=== PATIENT | male | born 1975 | race Caucasian/White ===

== ENCOUNTER 2018-04-26 05:35 | Inpatient (IN) | payer OTHER ==
--- NOTE | 2018-04-26 06:40 | ED ---
SOB HPI - General Chief Complaint: Shortness of Breath Stated Complaint: YURI Source: family, EMS Mode of arrival: EMS Limitations: no limitations - History of Present Illness Initial Comments: This patient's 43-year-old man with history of severe cardiomyopathy, hypertension, CHF, and asthma. He is transferred here from [facility]. He had gone there tonight for worsening shortness of breath. Patient states that his symptoms that started nearly 2 weeks ago with some mild shortness of breath. He also has had a cough with some white sputum. He states that things became much more severe tonight when he was trying to lie down to sleep. The patient was so short of breath that he could not put up in the hospital and longer. He also states that he has noted a little bit of swelling at both ankles. MD Complaint: shortness of breath, cough -: hour(s) Consistency: constant Improves With: oxygen Worsens With: lying flat Known History Of: asthma, congestive heart failure Associated Symptoms: cough, sputum production (White) Treatments Prior to Arrival: oxygen, NIPPV, nitroglycerin - Related Data Home Medications Medication Instructions Recorded Confirmed Aspirin EC [Ecotrin Low Dose] 81 mg PO DAILY 05/15/14 05/18/14 Atorvastatin [Lipitor] 40 mg PO DAILY 05/15/14 05/18/14 Carvedilol [Coreg*] 12.5 mg PO BID 05/15/14 05/18/14 Spironolactone [Aldactone] 25 mg PO DAILY 05/15/14 05/18/14 Lisinopril [Zestril] 20 mg PO DAILY 05/18/14 05/18/14 Previous Rx's Medication Instructions Recorded Furosemide [Lasix] 40 mg PO DAILY #90 tab 05/18/14 Allergies Allergy/AdvReac Type Severity Reaction Status Date / Time No Known Allergies Allergy Verified 05/15/14 13:59 Review of Systems ROS Statement: Those systems with pertinent positive or pertinent negative responses have been documented in the HPI. ROS Other: All systems not noted in ROS Statement are negative. Constitutional: Denies: fever, chills, weakness Respiratory: Reports: cough, dyspnea. Denies: wheezes, hemoptysis Cardiovascular: Reports: dyspnea on exertion, orthopnea, edema. Denies: chest pain, palpitations, syncope Gastrointestinal: Denies: abdominal pain, nausea, vomiting Genitourinary: Denies: dysuria, hematuria Musculoskeletal: Denies: back pain Skin: Denies: rash Neurological: Denies: headache, weakness, numbness Past Medical History Past Medical History: Asthma, Heart Failure, Hyperlipidemia, Hypertension Additional Past Medical History / Comment(s): CHILDHOOD ASTHMA, IS GOING FOR TESTING FOR SLEEP APNEA, cardiomegaly, CHF History of Any Multi-Drug Resistant Organisms: None Reported Past Surgical History: Orthopedic Surgery, Tonsillectomy Additional Past Surgical History / Comment(s): STATES HAS PINS IN [place] LEGS Past Anesthesia/Blood Transfusion Reactions: No Reported Reaction Past Psychological History: Anxiety, Depression Smoking Status: Former smoker Past Alcohol Use History: Rare Past Drug Use History: None Reported General Exam Limitations: no limitations General appearance: alert, in distress, obese Head exam: Present: atraumatic, normocephalic Eye exam: Present: normal appearance. Absent: scleral icterus, conjunctival injection ENT exam: Present: mucous membranes dry Respiratory exam: Present: respiratory distress, wheezes, rales (Bilateral bases ). Absent: rhonchi, stridor, decreased breath sounds, prolonged expiratory Cardiovascular Exam: Present: normal rhythm, tachycardia, normal heart sounds. Absent: systolic murmur, diastolic murmur, rubs, gallop GI/Abdominal exam: Present: soft. Absent: distended, tenderness, guarding, rebound, mass Extremities exam: Present: normal inspection, normal capillary refill. Absent: pedal edema, calf tenderness Back exam: Present: normal inspection Neurological exam: Present: alert Skin exam: Present: warm, intact, normal color, diaphoretic. Absent: rash Course Vital Signs 04/26/18 04/26/18 04/26/18 05:42 05:50 05:51 Temperature 97.7 F Pulse Rate 105 H Respiratory 28 H Rate Blood Pressure 167/121 167/120 177/128 O2 Sat by Pulse 95 Oximetry 04/26/18 04/26/18 04/26/18 05:57 06:14 06:15 Temperature Pulse Rate 105 H Respiratory 26 H 29 H Rate Blood Pressure 175/123 191/132 O2 Sat by Pulse 97 Oximetry Medical Decision Making - EKG Data EKG shows normal: axis (Right axis deviation), intervals (QRS duration 176 ms, prolonged consistent with left bundle-branch block), QRS complexes (Bundle- branch block) Rate: tachycardia (Rate approximately 105 bpm) Interpretation: other (Atrial fibrillation) Disposition Clinical Impression: Congestive heart failure Disposition: ADMITTED IP TO THIS HOSP Condition: Poor Referrals: None,Stated [Primary Care Provider] - 1-2 days
[2018-04-26] MEDS ORDERED: NITROGLYCERIN-D5W PMX 50 MG in DEXTROSE/WATER 1 250ML.BAG IV ONE (06:54)
[2018-04-26] MEDS: NITROGLYCERIN-D5W PMX 50 MG in DEXTROSE/WATER 1 250ML.BAG IV STA ×2 (06:59→10:43)
[2018-04-26] MEDS: SODIUM CHLORIDE 0.9% 1,000 ML IV SCH (07:04)
[2018-04-26] MEDS ORDERED: NALOXONE 0.4 MG/ML 1 ML VIAL IV PRN (08:09)
[2018-04-26] MEDS ORDERED: HYDROcodone/APAP 5-325MG 1 EACH TAB PO PRN (08:09)
[2018-04-26] MEDS ORDERED: LABETALOL 5 MG/ML VIAL MDV IVP STA ×2 (08:09→09:41)
[2018-04-26] MEDS ORDERED: MORPHINE SULFATE 2 MG/ML SYRINGE IV PRN (08:09)
[2018-04-26] MEDS ORDERED: ALPRAZolam 0.25 MG TAB PO PRN (08:09)
[2018-04-26] MEDS ORDERED: DOCUSATE 100 MG CAP PO PRN (08:09)
[2018-04-26] MEDS: FUROSEMIDE 10 MG/ML 4 ML VIAL IV SCH ×2 (08:12→22:22)
[2018-04-26] MEDS: CARVEDILOL 12.5 MG TAB PO SCH ×4 (08:12→18:46)
[2018-04-26] MEDS: ASPIRIN 81 MG PO SCH (08:12)
[2018-04-26] MEDS: ATORVASTATIN 40 MG TAB PO SCH (08:12)
[2018-04-26] MEDS: ENOXAPARIN 40 MG/0.4 ML SYRINGE SQ SCH (08:14)
[2018-04-26 08:38] LABS: Basophils # (A) 0.1 k/uL (0-0.2); Basophils % (A) 0 %; Eosinophils # (A) 0.2 k/uL (0-0.7); Eosinophils % (A) 2 %; HCT 45.6 % (39.0-53.0); HGB 15.1 gm/dL (13.0-17.5); Lymphocytes # (A) 1.9 k/uL (1.0-4.8); Lymphocytes % (A) 13 %; MCH 28.3 pg (25.0-35.0); MCHC 33.2 g/dL (31.0-37.0); MCV 85.3 fL (80.0-100.0); Mean Platelet Volume 7.2; Monocytes # (A) 0.7 k/uL (0-1.0); Monocytes % (A) 5 %; Neutrophils # (A) 11.5 k/uL (1.3-7.7); Neutrophils % (A) 79 %; Platelet Count 308 k/uL (150-450); RBC 5.35 m/uL (4.30-5.90); RDW 15.9 % (11.5-15.5); WBC 14.6 k/uL (3.8-10.6)
[2018-04-26 08:55] LABS: Appearance,Urine Clear (Clear); Bilirubin,Urine Negative (Negative); Blood,Urine Negative (Negative); Color,Urine Colorless; Glucose,Urine (UA) Negative (Negative); Ketones,Urine Negative (Negative); Leukocyte Esterase,Urine Negative (Negative); Nitrite,Urine Negative (Negative); Protein,Urine Negative (Negative); Specific Gravity,Urine 1.004 (1.001-1.035); Urobilinogen,Urine <2.0 mg/dL (<2.0)
[2018-04-26 08:58] LABS: INR 1.2 (<1.2)
[2018-04-26 08:59] LABS: Partial Thromboplastin Time 24.2 sec (22.0-30.0); Prothrombin Time 11.7 sec (9.0-12.0)
[2018-04-26] MEDS ORDERED: LISINOPRIL 20 MG TAB PO SCH (09:00)
[2018-04-26 09:03] LABS: ALT 40 U/L (21-72); AST 27 U/L (17-59); Albumin 3.7 g/dL (3.5-5.0); Alkaline Phosphatase 52 U/L (38-126); Anion Gap 8 mmol/L; Blood Urea Nitrogen 19 mg/dL (9-20); Calcium 8.6 mg/dL (8.4-10.2); Carbon Dioxide 26 mmol/L (22-30); Chloride 108 mmol/L (98-107); Glucose 95 mg/dL (74-99); Magnesium 2.1 mg/dL (1.6-2.3); Potassium 4.1 mmol/L (3.5-5.1); Sodium 142 mmol/L (137-145); Total Bilirubin 1.2 mg/dL (0.2-1.3); Total Protein 6.3 g/dL (6.3-8.2)
--- NOTE | 2018-04-26 10:01 | P.HPIM ---
History of Present Illness H&P Date: 04/26/18 Chief Complaint: shortness of breath Patient is a 43-year-old male past medical history of congestive heart failure with ejection fraction 10-15%, dyslipidemia, hypertension, sleep apnea, and asthma who initially presented to [facility]. They were concerned that he needed ICU admission he was subsequently transferred here. Strict he underwent an extensive evaluation. His chest x-ray showed fluid overload and cardiomegaly. Initial laboratory analysis showed slightly elevated white blood cell count 11.2, hemoglobin 14.9, hematocrit 45.2, and platelets 297. His basic metabolic profile showed a sodium of 143, potassium 4.2, chloride 106, bicarb 23, BUN and 18, creatinine 1.5, and glucose 119. His troponin was less than 0.03 and his BNP was elevated at 8116. He was also extremely hypertensive and was started on a nitro drip. He was started on BiPAP therapy to help with his breathing. Patient seen and examined at bedside in the emergency department. He states that he was at work last night and had an acute episode. He describes chest tightness that started in his stomach radiated to his chest and then into his jaw. This was associated with a feeling of throat tightening, shortness of breath, diaphoresis, nausea, lightheadedness, and left arm tingling. He believes that episode lasted 5 minutes or less. He then decided to come to the ER. He states that for the last 2 weeks he has been consistently struggling. He has been short of breath which is worse with exertion and lying flat but better with rest. This has been associated with a cough productive of white sputum. The other day he coughed so hard he had some bright red blood in his sputum. He has also been intermittently diaphoretic. He noticed a decreased appetite and increasing lower extremity edema. He initially thought he was could have pneumonia as he was having hot and cold sweats over the last few weeks. He also has felt fatigued and weak all over. He has not seen a physician for this prior. He does not have a PCP because his family physician retired. His corporate compliance manager is Dr. Zuleta he canceled the last 2 appointments due to being sick. He also struggling due to having no insurance. Review of Systems Pertinent positives and negatives as discussed in HPI, a complete review of systems was performed and all other systems are negative. Past Medical History Past Medical History: Asthma, Heart Failure, Hyperlipidemia, Hypertension Additional Past Medical History / Comment(s): CHILDHOOD ASTHMA, Sleep apnea, CHF , Morbid obesity History of Any Multi-Drug Resistant Organisms: None Reported Past Surgical History: Heart Catheterization, Orthopedic Surgery, Tonsillectomy Additional Past Surgical History / Comment(s): B/l Hip pinning as a child, right sided pins removed 2014 Past Anesthesia/Blood Transfusion Reactions: No Reported Reaction Past Psychological History: Anxiety, Depression Smoking Status: Former smoker Past Alcohol Use History: Rare Past Drug Use History: None Reported Additional History: Lives with mother and bother, works in a [id number], No insurnance - Past Family History Father Family Medical History: CVA/TIA, Myocardial Infarction ([place]) Additional Family Medical History / Comment(s): Father had MIs and CVAs and at the age of 47yrs. Mother Family Medical History: Diabetes Mellitus Additional Family Medical History / Comment(s): Mother has peripheral neuropathy. She is obese. Medications and Allergies Home Medications Medication Instructions Recorded Confirmed Type Aspirin EC [Ecotrin Low Dose] 81 mg PO DAILY 05/15/14 04/26/18 History Atorvastatin [Lipitor] 40 mg PO DAILY 05/15/14 04/26/18 History Carvedilol [Coreg*] 12.5 mg PO BID 05/15/14 04/26/18 History Spironolactone [Aldactone] 25 mg PO DAILY 05/15/14 04/26/18 History Furosemide [Lasix] 40 mg PO DAILY #90 tab 05/18/14 04/26/18 Rx Lisinopril [Zestril] 20 mg PO DAILY 05/18/14 04/26/18 History Allergies Allergy/AdvReac Type Severity Reaction Status Date / Time No Known Allergies Allergy Verified 04/26/18 07:41 Physical Exam Osteopathic Statement: *. No significant issues noted on an osteopathic structural exam other than those noted in the History and Physical/Consult. Vitals: Vital Signs Temp Pulse Resp BP Pulse Ox 04/26/18 08:00 94 18 185/108 97 04/26/18 07:34 97.6 F 93 18 174/106 98 04/26/18 06:15 29 H 04/26/18 06:14 105 H 26 H 191/132 97 04/26/18 05:57 175/123 04/26/18 05:51 177/128 04/26/18 05:50 167/120 04/26/18 05:42 97.7 F 105 H 28 H 167/121 95 Intake and Output 04/25/18 04/26/18 04/26/18 22:59 06:59 14:59 Intake Total 38.2 Output Total 500 Balance -461.8 Intake: Intake, IV Titration 38.2 Amount Nitroglycerin-D5w Pmx 50 38.2 mg In Dextrose/Water 1 250ml.bag @ 100 MCG/MIN 30 mls/hr IV .Q8H20M STA Rx#:[id number] Output: Urine 500 Other: Weight 163.293 kg General: ill appearing, mild distress, appears at stated age, morbidly obese Derm: no unusual rashes/lesions no unusual ecchymoses, warm, dry Head: atraumatic, normocephalic, symmetric Eyes: EOMI, no lid lag, anicteric sclera, pupils equal round reactive to light ENT: Nose and ears atraumatic, no thrush, no pharyngeal erythema Neck: No thyromegaly, no cervical lymphadenopathy, trachea midline, supple Mouth: no lip lesion, mucus membranes dryt Cardiovascular: S1S2 tachy, no murmur, positive posterior tibial pulse bilateral , 3+ edema, capillary refill less than 2 seconds Lungs: Crackles b/l bases, no rhonchi, no rales , no accessory muscle use Abdominal: soft, nontender to palpation, no guarding, no appreciable organomegaly, normal bowel sounds Ext: no gross muscle atrophy, muscle strength 5 out of 5 in all 4 extremities grossly, no contractures, Neuro: CN II-XI grossly intact, light touch intact all 4 extremities, finger to nose within normal limits, Psych: Alert, oriented, appropriate affect Results CBC & Chem 7: 04/26/18 05:38 04/26/18 08:30 Comments: EKG is reviewed by myself revealed sinus tachycardia nonspecific ST-T wave changes Chest x-ray: report reviewed, image reviewed (Appears to have cephalization and increased interstitial markings) Thrombosis Risk Factor Assmnt - DVT/VTE Prophylaxis DVT/VTE Prophylaxis: Pharmacologic Prophylaxis ordered - Choose All That Apply Each Factor Represents 1 point: Age 41-60 years, Heart failure (<1month), Obesity (BMI >25) Thrombosis Risk Factor Assessment Total Risk Factor Score: 3 Thrombosis Risk Factor Assessment Level: Moderate Risk Assessment and Plan Assessment: Acute exacerbation of systolic congestive heart failure, last ejection fraction 10-15% via cath in 2013 -Lasix twice a day, strict I's and O's, daily weight -Continue with lisinopril, Coreg -Aldactone -Telemetry monitoring -Cardiology consult -Check echocardiogram -BiPAP therapy to help with fluid mobilization as needed -ICU consult Hypertensive urgency -Continue with nitro drip -Small response IV labetalol will repeat 1 -Continue his blood pressure monitoring -Administration of morning meds Chest pain, possible acute coronary syndrome -Aspirin -Lipitor -Serial cardiac enzymes -Telemetry Dyslipidemia -Check lipid profile -Continue with Lipitor Obstructive sleep apnea -Does not have CPAP at home secondary to insurance and will not order at this point in time Morbid obesity -Recommend structured outpatient weight loss Leukocytosis -Urinalysis negative, chest x-ray without signs of pneumonia -Repeat chest x-ray in a.m. -Follow fever profile -Likely stress-induced The patient is admitted with an anticipated greater than 2 midnight stay for evaluation of congestive heart failure, hypertensive urgency, and chest pain. Surrogate decision-maker: Mother who will need to call ex- for full decision -making CODE STATUS: Full by default, patient considering options DVT prophylaxis: Lovenox Discussed with: ED physician, patient, ED nursing, ICU nursing Anticipated discharge date: 3-[address]: Home A total of 75 minutes was spent on the care of this complex patient more than 50 % of the time was spent in counseling and care coordination.
--- NOTE | 2018-04-26 10:11 | P.CRDCN ---
History of Present Illness Consult date: 04/26/18 Requesting physician: Selina Huang Consult reason: shortness of breath Chief complaint: Shortness of breath History of present illness: This is a 43-year-old gentleman who follows with Dr. Zuleta in the office. He has a known history of nonischemic cardiomyopathy, morbid obesity, obstructive sleep apnea, patient has not been able to use his CPAP because he lost his insurance, hypertension, hyperlipidemia, family history of premature coronary artery disease, patient did undergo cardiac catheterization in 2013 which revealed normal coronary arteries, ejection fraction by most recent echo performed in the office in June 2017 was 35%, mild TR, mild MR. Patient was seen and evaluated in the emergency room, he was transferred here from [facility], patient presented to [facility] with symptoms of severe difficulty in breathing which according to the patient has been going on for the past couple of weeks, symptoms much worse with minimal exertion, he states that he feels his lungs are tight and it's difficult to breathe. and also with lying flat. The patient, he's also noted some chills at home and states he's been coughing up white sputum. Laboratory data [facility], white blood cell count 11.2, hemoglobin 14.9, hematocrit 45.2. Platelet count 297. Sodium 143, potassium 4.2, magnesium 1.8, BUN 18, creatinine 1.2. Troponin 0.03. BNP level 8116. Chest x-ray performed earlier [facility] revealed cardiomegaly with no active cardiopulmonary disease. She was initiated on IV Lasix prior to transfer here and was also given a dose of IV Lasix on arrival here. EKG performed at [facility] shows a sinus rhythm with left bundle branch block pattern. EKG on arrival here shows what appears to be a multifocal atrial tachycardia with bundle branch block pattern. Blood pressure on arrival here 167/121, heart rate low 100s, 95% on BiPAP. Blood pressure here 165/101, 100% on BiPAP, heart rate in the 80s. Patient is currently on a baby aspirin, Lipitor 40 daily, Coreg 12-1/ 2 mg by mouth twice a day, Lovenox 40 mg subcu daily, 40 mg of IV Lasix twice a day, Zestril 20 mg daily, nitroglycerin drip, Aldactone 25 mg daily. Past Medical History Past Medical History: Asthma, Heart Failure, Hyperlipidemia, Hypertension Additional Past Medical History / Comment(s): CHILDHOOD ASTHMA, IS GOING FOR TESTING FOR SLEEP APNEA, cardiomegaly, CHF History of Any Multi-Drug Resistant Organisms: None Reported Past Surgical History: Orthopedic Surgery, Tonsillectomy Additional Past Surgical History / Comment(s): STATES HAS PINS IN [place] LEGS Past Anesthesia/Blood Transfusion Reactions: No Reported Reaction Past Psychological History: Anxiety, Depression Smoking Status: Former smoker Past Alcohol Use History: Rare Past Drug Use History: None Reported - Past Family History Father Family Medical History: CVA/TIA, Myocardial Infarction ([place]) Additional Family Medical History / Comment(s): Father had MIs and CVAs and at the age of 47yrs. Mother Family Medical History: Diabetes Mellitus Additional Family Medical History / Comment(s): Mother has peripheral neuropathy. She is obese. Medications and Allergies Home Medications Medication Instructions Recorded Confirmed Type Aspirin EC [Ecotrin Low Dose] 81 mg PO DAILY 05/15/14 04/26/18 History Atorvastatin [Lipitor] 40 mg PO DAILY 05/15/14 04/26/18 History Carvedilol [Coreg*] 12.5 mg PO BID 05/15/14 04/26/18 History Spironolactone [Aldactone] 25 mg PO DAILY 05/15/14 04/26/18 History Furosemide [Lasix] 40 mg PO DAILY #90 tab 05/18/14 04/26/18 Rx Lisinopril [Zestril] 20 mg PO DAILY 05/18/14 04/26/18 History Allergies Allergy/AdvReac Type Severity Reaction Status Date / Time No Known Allergies Allergy Verified 04/26/18 07:41 Physical Exam Vitals: Vital Signs Temp Pulse Resp BP Pulse Ox 04/26/18 09:00 80 165/101 100 04/26/18 08:42 85 18 165/106 100 04/26/18 08:26 93 20 167/114 99 04/26/18 08:00 94 18 185/108 97 04/26/18 07:34 97.6 F 93 18 174/106 98 04/26/18 06:15 29 H 04/26/18 06:14 105 H 26 H 191/132 97 04/26/18 05:57 175/123 04/26/18 05:51 177/128 04/26/18 05:50 167/120 08/07/18 05:42 97.7 F 105 H 28 H 167/121 95 Intake and Output 04/25/18 04/26/18 04/26/18 22:59 06:59 14:59 Intake Total 71.0 Output Total 1050 Balance -979.0 Intake: Intake, IV Titration 71.0 Amount Nitroglycerin-D5w Pmx 50 71.0 mg In Dextrose/Water 1 250ml.bag @ 100 MCG/MIN 30 mls/hr IV .Q8H20M STA Rx#:[id number] Output: Urine 1050 Other: Weight 163.293 kg PHYSICAL EXAMINATION: GENERAL: 43-year-old gentleman in no acute distress at the time of my examination HEENT: Head is atraumatic, normocephalic. Pupils equal, round. Sclera anicteric. Conjunctiva are clear. Mucous membranes of the mouth are moist. Neck is supple. Difficult to assess jugular venous pressure. no carotid bruit is heard. HEART EXAMINATION: heart S1 and S2 systolic ejection murmur is heard CHEST EXAMINATION: Lungs reveal decreased air exchange throughout with scattered coarse rhonchi and wheezing ABDOMEN: Soft, obese, nontender . Bowel sounds are heard. No organomegaly noted. EXTREMITIES:1+ peripheral pulses with 1+ evidence of peripheral edema NEUROLOGIC [patient is awake, alert and oriented ?-3.] . Results 04/26/18 05:38 04/26/18 08:30 Cardiac Enzymes 04/26/18 Range/Units 08:30 AST 27 (17-59) U/L Coagulation 04/26/18 Range/Units 08:30 PT 11.7 (9.0-12.0) sec APTT 24.2 (22.0-30.0) sec CBC 04/26/18 Range/Units 05:38 WBC 14.6 H (3.8-10.6) k/uL RBC 5.35 (4.30-5.90) m/uL Hgb 15.1 (13.0-17.5) gm/dL Hct 45.6 (39.0-53.0) % Plt Count 308 (150-450) k/uL Comprehensive Metabolic Panel 04/26/18 Range/Units 08:30 Sodium 142 (137-145) mmol/L Potassium 4.1 (3.5-5.1) mmol/L Chloride 108 H (98-107) mmol/L Carbon Dioxide 26 (22-30) mmol/L BUN 19 (9-20) mg/dL Creatinine 1.12 (0.66-1.25) mg/dL Glucose 95 (74-99) mg/dL Calcium 8.6 (8.4-10.2) mg/dL AST 27 (17-59) U/L ALT 40 (21-72) U/L Alkaline Phosphatase 52 (38-126) U/L Total Protein 6.3 (6.3-8.2) g/dL Albumin 3.7 (3.5-5.0) g/dL Current Medications Generic Name Dose Route Start Last Admin Trade Name Freq PRN Reason Stop Dose Admin Acetaminophen 650 mg 04/26/18 08:09 Tylenol Tab PO Q4HR PRN Fever and/or Mild Pain Hydrocodone Bitart/Acetaminophen 1 each 04/26/18 08:09 04/26/18 08:24 [place] 5-325 PO 1 each Q4HR PRN Administration Mild Pain Alprazolam 0.25 mg 04/26/18 08:09 Xanax PO Q6HR PRN Mild Anxiety Aspirin 81 mg 04/26/18 09:00 04/26/18 08:12 Aspirin PO 81 mg DAILY JAZMINE Administration Atorvastatin Calcium 40 mg 04/26/18 09:00 04/26/18 08:12 Lipitor PO 40 mg DAILY JAZMINE Administration Carvedilol 12.5 mg 04/26/18 07:30 04/26/18 08:12 Coreg PO 12.5 mg BID-W/MEALS JAZMINE Administration Docusate Sodium 100 mg 04/26/18 08:09 Colace PO BID PRN Constipation Enoxaparin Sodium 40 mg 04/26/18 09:00 04/26/18 08:14 Lovenox SQ 40 mg DAILY JAZMINE Administration Furosemide 40 mg 04/26/18 07:00 04/26/18 08:12 Lasix IV 40 mg Q12H JAZMINE Administration Sodium Chloride 1,000 mls @ 20 mls/hr 04/26/18 06:45 04/26/18 07:04 Saline 0.9% IV 20 mls/hr .Q24H JAZMINE Administration Nitroglycerin/Dextrose 50 mg/ 250 mls @ 30 mls/hr 04/26/18 06:55 04/26/18 08: 44 IV Solution IV 04/26/18 15:14 180 mcg/min .Q8H20M STA 54 mls/hr Titration Protocol 100 MCG/MIN Lisinopril 20 mg 04/26/18 09:00 Zestril PO DAILY JAZMINE Morphine Sulfate 2 mg 04/26/18 08:09 Morphine Sulfate (Inj) IV Q2HR PRN Pain Scale 4 to 5 Naloxone HCl 0.2 mg 04/26/18 08:09 Narcan IV Q2M PRN Opioid Reversal Pantoprazole Sodium 40 mg 04/27/18 07:30 Protonix PO AC-BRKFST JAZMINE Spironolactone 25 mg 04/26/18 09:00 Aldactone PO DAILY JAZMINE Intake and Output 04/25/18 04/26/18 04/26/18 22:59 06:59 14:59 Intake Total 71.0 Output Total 1050 Balance -979.0 Intake: Intake, IV Titration 71.0 Amount Nitroglycerin-D5w Pmx 50 71.0 mg In Dextrose/Water 1 250ml.bag @ 100 MCG/MIN 30 mls/hr IV .Q8H20M STA Rx#:[id number] Output: Urine 1050 Other: Weight 163.293 kg 04/26/18 05:38 04/26/18 08:30 EKG Interpretations (text) EKG shows a normal sinus rhythm with right axis deviation Assessment and Plan Plan: Assessment and plan #1 respiratory distress with evidence of congestive heart failure, systolic acute on chronic #2 morbid obesity #3 nonischemic cardiomyopathy, most recent echo cardiac exam with Doppler study performed in the office revealed an ejection fraction of 35%. Patient did undergo a cardiac catheterization in 2013 which revealed normal coronary arteries #4 accelerated hypertension #5 hyperlipidemia #6 sleep apnea, patient is not currently using his CPAP because of insurance issues #7 asthma Plan We'll repeat an echocardiogram with Doppler study. We will also request a repeat chest x-ray be performed here. Continue IV Lasix. Continue Coreg 12-1/ 2 mg one tablet by mouth twice a day, lisinopril 20 mg daily, Dr. 25 mg daily, and nitro drip. Further recommendations to follow. DNP note has been reviewed, I agree with a documented findings and plan of care. Patient was seen and examined.
[2018-04-26 10:34] LABS: Glucose,Whole Blood 106 mg/dL (75-99)
--- NOTE | 2018-04-26 10:57 | P.CNPUL ---
History of Present Illness Consult date: 04/26/18 Requesting physician: Radha Villalobos Reason for consult: dyspnea, chest pain, abnormal CXR/CT, obstructive sleep apnea Chief complaint: Acute congestive heart failure, chest pain, shortness of breath History of present illness: Mr. Weber is a 43-year-old white male patient known history of nonischemic cardiomyopathy, morbid obesity, obstructive sleep apnea not on CPAP therapy related to lack of health insurance coverage, hypertension, hyperlipidemia, chronic bronchial asthma, anxiety, depression and former smoking history, presented to the [facility] on 04/25/2018 for evaluation of worsening shortness of breath, severe orthopnea, chest tightness, peripheral swelling and cough. His symptoms started 2 weeks ago, and became progressively worse. Patient was at work yesterday, when he started experiencing increasing chest tightness, abdominal tightness, and progressive dyspnea. Patient employed at a [employer] plant, he was not exerting more than usual. He thinks his shortness of breath was related to hot humid weather, and increased water intake. He gained 7,5 pounds in the last week and a half. Chest x-ray showed fluid overload and cardiomegaly. Laboratory urinalysis showed mild leukocytosis , the CBC of 11.2, hemoglobin of 14.9, BUN of 18, creatinine of 1.5, troponin was less than 0.03, and BNP was elevated at 8116. Patient was found to be hypertensive, and he was started on nitroglycerin drip. He was started on BiPAP support with pressures of 10 and 5, and FiO2 of 50%. Her physician in 2013 showed normal coronary arteries, most [facility] showed severely impaired left ventricular systolic function with an EF of 35%. EKG performed at [facility] showed atrial tachycardia with left bundle branch block. Patient was started on on IV Lasix, remains on nitroglycerin drip. Patient has just arrived in the intensive care unit, he is awake and alert, sitting up on the gurney, in no acute distress, currently on nasal cannula, denies chest pain at present. Sinus rhythm with a rate of 82 BPM. Review of Systems All systems: negative Constitutional: Denies chills, Denies fever Eyes: denies blurred vision, denies pain Ears, nose, mouth and throat: Denies headache, Denies sore throat Cardiovascular: Denies chest pain, Denies shortness of breath Respiratory: Reports congestion, Reports cough with sputum, Reports dyspnea, Denies cough Gastrointestinal: Denies abdominal pain, Denies diarrhea, Denies nausea, Denies vomiting Musculoskeletal: Denies myalgias Integumentary: Denies pruritus, Denies rash Neurological: Denies numbness, Denies weakness Psychiatric: Denies anxiety, Denies depression Endocrine: Denies fatigue, Denies weight change Past Medical History Past Medical History: Asthma, Heart Failure, Hyperlipidemia, Hypertension Additional Past Medical History / Comment(s): CHILDHOOD ASTHMA, obstructive sleep apnea, currently not on C-Pap therapy, cardiomegaly, CHF History of Any Multi-Drug Resistant Organisms: None Reported Past Surgical History: Orthopedic Surgery, Tonsillectomy Additional Past Surgical History / Comment(s): STATES HAS PINS IN [place] LEGS Past Anesthesia/Blood Transfusion Reactions: No Reported Reaction Past Psychological History: Anxiety, Depression Smoking Status: Former smoker Past Alcohol Use History: Rare Past Drug Use History: None Reported - Past Family History Father Family Medical History: CVA/TIA, Myocardial Infarction ([place]) Additional Family Medical History / Comment(s): Father had MIs and CVAs and at the age of 47yrs. Mother Family Medical History: Diabetes Mellitus Additional Family Medical History / Comment(s): Mother has peripheral neuropathy. She is obese. Medications and Allergies Home Medications Medication Instructions Recorded Confirmed Type Aspirin EC [Ecotrin Low Dose] 81 mg PO DAILY 05/15/14 04/26/18 History Atorvastatin [Lipitor] 40 mg PO DAILY 05/15/14 04/26/18 History Carvedilol [Coreg*] 12.5 mg PO BID 05/15/14 04/26/18 History Spironolactone [Aldactone] 25 mg PO DAILY 05/15/14 04/26/18 History Furosemide [Lasix] 40 mg PO DAILY #90 tab 05/18/14 04/26/18 Rx Lisinopril [Zestril] 20 mg PO DAILY 05/18/14 04/26/18 History Allergies Allergy/AdvReac Type Severity Reaction Status Date / Time No Known Allergies Allergy Verified 04/26/18 07:41 Physical Exam Vitals: Vital Signs Temp Pulse Resp BP Pulse Ox 04/26/18 09:00 80 165/101 100 04/26/18 08:42 85 18 165/106 100 04/26/18 08:26 93 20 167/114 99 04/26/18 08:00 94 18 185/108 97 04/26/18 07:34 97.6 F 93 18 174/106 98 04/26/18 06:15 29 H 04/26/18 06:14 105 H 26 H 191/132 97 04/26/18 05:57 175/123 04/26/18 05:51 177/128 04/26/18 05:50 167/120 04/26/18 05:42 97.7 F 105 H 28 H 167/121 95 Intake and Output 04/25/18 04/26/18 04/26/18 22:59 06:59 14:59 Intake Total 71.0 Output Total 1050 Balance -979.0 Intake: Intake, IV Titration 71.0 Amount Nitroglycerin-D5w Pmx 50 71.0 mg In Dextrose/Water 1 250ml.bag @ 100 MCG/MIN 30 mls/hr IV .Q8H20M STA Rx#:[id number] Output: Urine 1050 Other: Weight 163.293 kg GENERAL EXAM: Alert, pleasant, obese 43-year-old white male, comfortable in no apparent distress. Presently on nasal cannula, in no acute distress HEAD: Normocephalic/atraumatic. EYES: Normal reaction of pupils, equal size. Conjunctiva pink, sclera white. NOSE: Clear with pink turbinates. THROAT: No erythema or exudates. NECK: No masses, no JVD, no thyroid enlargement, no adenopathy. CHEST: No chest wall deformity. Symmetrical expansion. LUNGS: Equal air entry with diminished breath sounds, and bibasilar crackles CVS: Regular rate and rhythm, normal S1 and S2, no gallops, no murmurs, no rubs ABDOMEN: Soft, nontender. No hepatosplenomegaly, normal bowel sounds, no guarding or rigidity. EXTREMITIES: No clubbing, no edema, no cyanosis, 2+ pulses and upper and lower extremities. MUSCULOSKELETAL: Muscle strength and tone normal. SPINE: No scoliosis or deformity SKIN: No rashes CENTRAL NERVOUS SYSTEM: Alert and oriented -3. No focal deficits, tone is normal in all 4 extremities. PSYCHIATRIC: Alert and oriented -3. Appropriate affect. Intact judgment and insight. Results - Laboratory Findings CBC and BMP: 04/26/18 05:38 04/26/18 08:30 PT/INR, D-dimer PT 11.7 sec (9.0-12.0) 04/26/18 08:30 INR 1.2 (<1.2) H 04/26/18 08:30 Abnormal lab findings: Abnormal Labs 04/26/18 04/26/18 04/26/18 05:38 08:30 08:30 WBC 14.6 H RDW 15.9 H Neutrophils # 11.5 H INR 1.2 H Chloride 108 H - Diagnostic Findings Additional studies: Chest x-ray report, EKG and lab work from [facility] reviewed Assessment and Plan Plan: Assessment: #1. Hypertensive urgency with secondary pulmonary edema and chest pain #2. Acute on chronic systolic congestive heart failure #3. Nonischemic cardiomyopathy, with EF of 30-35% #4. Hypertension, hyperlipidemia #5. Obstructive sleep apnea, severe, with AHI score of 56.5 and oxygen desaturation to 75%. Patient is currently not utilizing CPAP due to lack of insurance coverage #6. Morbid obesity, with BMI of 43.8 kg/m #7. Mild leukocytosis #8. Positive troponin #9. Prior history of smoking, quit a year ago, carries [id number] smoking history #10. History of childhood asthma #11. Anxiety, depression Plan: Continue IV diuresis, continue BiPAP support, continue labetalol, wean nitroglycerin drip, continue aspirin, beta blockers, Aldactone, lisinopril. Patient has been seen by cardiology. We'll obtain baseline chest x-ray. Continue close hemodynamic monitoring, labs, rhythm and rate, urine output, recurrence of chest pain. Patient is improving, no tachypnea, no tachycardia. We'll continue to follow I performed a history & physical examination of the patient and discussed their management with my nurse practitioner, Nasima Simental. I reviewed the nurse practitioner's note and agree with the documented findings and plan of care. Lung sounds are positive for coarse bibasilar crackles. The findings and the impression was discussed with the patient. I attest to the documentation by the nurse practitioner. Time with Patient: Greater than 30
--- NOTE | 2018-04-26 11:43 | ECHOF ---
Referral Reason:chf MEASUREMENTS -------- HEIGHT: 193.0 cm WEIGHT: 163.3 kg BP: 142/90 RVIDd: 3.9 cm (< 3.3) IVSd: 1.6 cm (0.6 - 1.1) LVIDd: 7.2 cm (3.9 - 5.3) LVPWd: 1.6 cm (0.6 - 1.1) IVSs: 1.8 cm LVIDs: 6.3 cm LVPWs: 2.0 cm LA Diam: 5.2 cm (2.7 - 3.8) LAESV Index (A-L): 36.31 ml/m Ao Diam: 3.9 cm (2.0 - 3.7) AV Cusp: 1.6 cm (1.5 - 2.6) MV EXCURSION: 14.837 mm (> 18.000) MV EF SLOPE: 41 mm/s (70 - 150) EPSS: 1.9 cm MV E Ricardo: 1.20 m/s MV DecT: 160 ms MV A Ricardo: 0.44 m/s MV E/A Ratio: 2.76 RAP: 15.00 mmHg RVSP: 42.30 mmHg FINDINGS -------- Sinus rhythm. This was a technically difficult study with suboptimal views. The left ventricle is severely dilated. There is moderate concentric left ventricular hypertrophy. Overall left ventricular systolic function is severely impaired with, an EF between 20 - 25 %. The right ventricle is moderately enlarged. LA is moderately dilated 34-39 ml/m2 The right atrium is normal in size. 4 ml of Lumason was utilized for enhancement of images. The aortic valve was not well visualized. Mild mitral regurgitation is present. Mild tricuspid regurgitation present. There is mild pulmonary hypertension. The right ventricular systolic pressure, as measured by Doppler, is 42.30mmHg. There is no pulmonic regurgitation present. The aortic root is dilated measuring 3.9cm. The inferior vena cava is dilated with no significant inspiratory collapse which is consistent estima antelmo right atrial pressure of >15 mmHg. There is a small, generalized pericardial effusion present. CONCLUSIONS -------- 1. Sinus rhythm. 2. This was a technically difficult study with suboptimal views. 3. The left ventricle is severely dilated. 4. There is moderate concentric left ventricular hypertrophy. 5. Overall left ventricular systolic function is severely impaired with, an EF between 20 - 25 %. 6. The right ventricle is moderately enlarged. 7. LA is moderately dilated 34-39 ml/m2 8. The right atrium is normal in size. 9. 4 ml of Lumason was utilized for enhancement of images. 10. The aortic valve was not well visualized. 11. Mild mitral regurgitation is present. 12. Mild tricuspid regurgitation present. 13. There is mild pulmonary hypertension. 14. The right ventricular systolic pressure, as measured by Doppler, is 42.30mmHg. 15. There is no pulmonic regurgitation present. 16. The aortic root is dilated measuring 3.9cm. 17. The inferior vena cava is dilated with no significant inspiratory collapse which is consistent es timated right atrial pressure of >15 mmHg. 18. There is a small, generalized pericardial effusion present. BULK STATION AGENT: Oly Garcia RDCS
--- NOTE | 2018-04-26 11:46 | XR ---
EXAMINATION TYPE: XR chest 1V portable DATE OF EXAM: 04/26/2018 COMPARISON: None INDICATION: CHF TECHNIQUE: Single frontal view of the chest is obtained. FINDINGS: The heart size is normal. The pulmonary vasculature is normal. The lungs are clear. IMPRESSION: 1. No acute pulmonary process.
[2018-04-26] MEDS: SPIRONOLACTONE 25 MG TAB PO SCH (12:03)
[2018-04-26 14:51] LABS: Creatine Kinase MB 3.2 ng/mL (0.0-2.4)
[2018-04-26 14:53] LABS: Troponin I 0.043 ng/mL (0.000-0.034)
[2018-04-26] MEDS: ACETAMINOPHEN TAB 325 MG TAB PO PRN (18:54)
[2018-04-26 19:26] LABS: Hemoglobin A1C 5.4 % (4.0-6.0)
[2018-04-26 20:57] LABS: Troponin I 0.03 ng/mL (0.000-0.034)
[2018-04-26 20:58] LABS: Creatine Kinase MB 3.3 ng/mL (0.0-2.4)
[2018-04-26] MEDS: LISINOPRIL 20 MG TAB PO SCH (22:23)
[2018-04-27 06:00] LABS: Basophils # (A) 0.1 k/uL (0-0.2); Basophils % (A) 1 %; Eosinophils # (A) 0.3 k/uL (0-0.7); Eosinophils % (A) 3 %; HCT 41.5 % (39.0-53.0); HGB 13.4 gm/dL (13.0-17.5); Lymphocytes # (A) 1.5 k/uL (1.0-4.8); Lymphocytes % (A) 16 %; MCH 27.6 pg (25.0-35.0); MCHC 32.3 g/dL (31.0-37.0); MCV 85.6 fL (80.0-100.0); Mean Platelet Volume 7.2; Monocytes # (A) 0.5 k/uL (0-1.0); Monocytes % (A) 5 %; Neutrophils # (A) 7.1 k/uL (1.3-7.7); Neutrophils % (A) 74 %; Platelet Count 229 k/uL (150-450); RBC 4.85 m/uL (4.30-5.90); RDW 15.4 % (11.5-15.5); WBC 9.6 k/uL (3.8-10.6)
[2018-04-27] MEDS: FUROSEMIDE 10 MG/ML 4 ML VIAL IV SCH ×2 (06:01→17:12)
[2018-04-27] MEDS: SODIUM CHLORIDE 0.9% 1,000 ML IV SCH (06:02)
[2018-04-27] MEDS: PANTOPRAZOLE 40 MG TABLET PO SCH (06:33)
[2018-04-27] MEDS: CARVEDILOL 12.5 MG TAB PO SCH ×2 (06:33→17:12)
[2018-04-27 06:46] LABS: Anion Gap 5 mmol/L; Blood Urea Nitrogen 22 mg/dL (9-20); Calcium 8.5 mg/dL (8.4-10.2); Carbon Dioxide 31 mmol/L (22-30); Chloride 104 mmol/L (98-107); Cholesterol 150 mg/dL (<200); Glucose 90 mg/dL (74-99); HDL Cholesterol 18 mg/dL (40-60); LDL Cholesterol,Calculated 110 mg/dL (0-99); Magnesium 2.2 mg/dL (1.6-2.3); Phosphorus 4.8 mg/dL (2.5-4.5); Potassium 4.5 mmol/L (3.5-5.1); Sodium 140 mmol/L (137-145); Triglycerides 110 mg/dL (<150)
--- NOTE | 2018-04-27 07:53 | XR ---
EXAMINATION TYPE: XR chest 1V portable DATE OF EXAM: 04/27/2018 Comparison: 04/26/2018 Clinical History: 43-year-old male Congestive heart failure Findings: Heart borderline in size. Perihilar and peribronchial densities are similar. No yasmeen consolidation o r significant pleural effusion seen. Impression: Borderline heart size with similar mild perihilar and central interstitial densities. Possible mild p ulmonary vascular congestion. No pulmonary edema or pleural effusion.
[2018-04-27] MEDS: ATORVASTATIN 40 MG TAB PO SCH (08:07)
[2018-04-27] MEDS: ASPIRIN 81 MG PO SCH (08:07)
[2018-04-27] MEDS: ENOXAPARIN 40 MG/0.4 ML SYRINGE SQ SCH (08:07)
[2018-04-27] MEDS: LISINOPRIL 20 MG TAB PO SCH ×2 (08:07→19:46)
[2018-04-27] MEDS: SPIRONOLACTONE 25 MG TAB PO SCH (08:09)
[2018-04-27] MEDS: ACETAMINOPHEN TAB 325 MG TAB PO PRN (08:17)
[2018-04-27] MEDS ORDERED: MORPHINE SULFATE 2 MG/ML SYRINGE IV PRN (09:25)
--- NOTE | 2018-04-27 09:29 | P.PN ---
Subjective Progress Note Date: 04/27/18 Principal diagnosis: Systolic heart failure exacerbation Patient reported feeling better today. Shortness of breath is improving. He denies any chest pain. Lower extremity edema has improved as well. He is negative approximately 3 L since admission on his fluid balance. Objective - Vital Signs Vital signs: Vital Signs Temp 97.9 F 04/27/18 04:00 Pulse 64 04/27/18 04:00 Resp 20 04/27/18 04:00 BP 137/85 04/27/18 04:00 Pulse Ox 96 04/27/18 04:00 Intake & Output 04/26/18 04/27/18 04/27/18 18:59 06:59 18:59 Intake Total 395.85 680 118 Output Total 2750 1450 Balance -2354.15 -770 118 Weight 163.293 kg 160.1 kg Intake: IV 160 80 Sodium Chloride 0.9% 1, 160 80 000 ml @ 20 mls/hr IV . Q24H JAZMINE Rx#:[id number] Intake, IV Titration 235.85 Amount Nitroglycerin-D5w Pmx 50 235.85 mg In Dextrose/Water 1 250ml.bag @ 100 MCG/MIN 30 mls/hr IV .Q8H20M STA Rx#:[id number] Oral 600 118 Output: Urine 2750 1450 Other: Voiding Method Urinal Urinal - Exam General: The patient is awake and alert, in no distress Eye: there is normal conjunctiva bilaterally. Neck: The neck is supple, there is no JVD. Cardiovascular: Normal S1-S2, no S3-S4, no murmurs. Respiratory: Lungs clear to auscultation bilaterally Gastrointestinal: Abdomen is soft, nontender Musculoskeletal: There is +1 pedal edema. Neurological:. Speech is normal. Skin: Skin is warm and dry - Labs CBC & Chem 7: 04/27/18 05:14 04/27/18 05:14 Labs: Abnormal Lab Results - Last 24 Hours (Table) 04/26/18 04/26/18 04/26/18 Range/Units 08:30 10:32 13:44 Carbon Dioxide (22-30) mmol/L BUN (9-20) mg/dL POC Glucose (mg/dL) 106 H (75-99) mg/dL Phosphorus (2.5-4.5) mg/dL CK-MB (CK-2) 3.2 H* (0.0-2.4) ng/mL Troponin I 0.063 H* 0.043 H* (0.000-0.034) ng/mL LDL Cholesterol, Calc (0-99) mg/dL HDL Cholesterol (40-60) mg/dL 04/26/18 04/27/18 Range/Units 20:13 05:14 Carbon Dioxide 31 H (22-30) mmol/L BUN 22 H (9-20) mg/dL POC Glucose (mg/dL) (75-99) mg/dL Phosphorus 4.8 H (2.5-4.5) mg/dL CK-MB (CK-2) 3.3 H* (0.0-2.4) ng/mL Troponin I (0.000-0.034) ng/mL LDL Cholesterol, Calc 110 H (0-99) mg/dL HDL Cholesterol 18 L (40-60) mg/dL Assessment and Plan Assessment: 1. Acute systolic heart failure exacerbation: Started on IV Lasix 40 mg twice a day. Patient is diuresing well. Fluid balance -3 L since admission. Repeat chest x-ray showed no significant changes. Lower extremity edema is improving. We will continue IV diuresis for 1 more day. 2. Acute hypoxic respiratory failure: Secondary to #1. Wean off O2 as tolerated for O2 sats greater than 90%. 3. Nonischemic cardiomyopathy: Last heart cath in 2013 showed normal coronary arteries. Continue optimal medical management. Repeat echocardiogram during this admission showed EF of 20%. Cardiology following closely. Appreciate recommendations. 4. Essential hypertension: With hypertensive urgency on presentation requiring nitro drip currently discontinued: Blood pressure better controlled with current regimen. We will continue to monitor closely. 5. Mixed hyperlipidemia: Maintained on Lipitor, continue 6. Obstructive sleep apnea: Patient unable to afford CPAP machine at home due to lack of insurance 7. Mild intermittent asthma: With no acute exacerbation 8. Morbid obesity BMI 40 Today, I reviewed his medication list and lab work results. Continue IV diuresis 1 more day. Encouraged ambulation. Wean off O2 as tolerated for O2 sats greater than 90%. Repeat lab work in the morning. Appreciate fitness consultant' s recommendations.
--- NOTE | 2018-04-27 10:06 | P.PN ---
Subjective Progress Note Date: 04/27/18 Principal diagnosis: Hypertensive urgency, acute exacerbation of chronic systolic congestive heart failure. Mr. Weber is a 43-year-old white male patient known history of nonischemic cardiomyopathy, morbid obesity, obstructive sleep apnea not on CPAP therapy related to lack of health insurance coverage, hypertension, hyperlipidemia, chronic bronchial asthma, anxiety, depression and former smoking history, presented to the [facility] on 04/25/2018 for evaluation of worsening shortness of breath, severe orthopnea, chest tightness, peripheral swelling and cough. His symptoms started 2 weeks ago, and became progressively worse. Patient was at work yesterday, when he started experiencing increasing chest tightness, abdominal tightness, and progressive dyspnea. Patient employed at a [employer] plant, he was not exerting more than usual. He thinks his shortness of breath was related to hot humid weather, and increased water intake. He gained 7,5 pounds in the last week and a half. Chest x-ray showed fluid overload and cardiomegaly. Laboratory urinalysis showed mild leukocytosis , the CBC of 11.2, hemoglobin of 14.9, BUN of 18, creatinine of 1.5, troponin was less than 0.03, and BNP was elevated at 8116. Patient was found to be hypertensive, and he was started on nitroglycerin drip. He was started on BiPAP support with pressures of 10 and 5, and FiO2 of 50%. Her physician in 2013 showed normal coronary arteries, most [facility] 2017 showed severely impaired left ventricular systolic function with an EF of 35%. EKG performed at [facility] showed atrial tachycardia with left bundle branch block. Patient was started on on IV Lasix, remains on nitroglycerin drip. Patient has just arrived in the intensive care unit, he is awake and alert, sitting up on the gurney, in no acute distress, currently on nasal cannula, denies chest pain at present. Sinus rhythm with a rate of 82 BPM. The patient is seen again today 04/27/2018 in follow-up on the selective care unit. Appendectomy is awake and alert in no acute distress. He states he is breathing easier today as compared to yesterday. He is diuresing well. Currently in a negative balance. He is down 3 kg. Remains on Lasix 40 mg IV push every 12 hours along with spironolactone. X-ray shows mild pulmonary vascular congestion. He is maintaining good O2 saturations in the upper 90s on 2 L/m per nasal cannula. He's been afebrile. Hemodynamically stable. He did utilize the BiPAP last night. White count 9.6. Hemoglobin 13.4. Bicarb 31. Creatinine 1.12. Objective - Vital Signs Vital signs: Vital Signs Temp 97.9 F 04/27/18 04:00 Pulse 64 04/27/18 04:00 Resp 20 04/27/18 04:00 BP 137/85 04/27/18 04:00 Pulse Ox 96 04/27/18 04:00 Intake & Output 04/26/18 04/27/18 04/27/18 18:59 06:59 18:59 Intake Total 395.85 680 118 Output Total 2750 1450 Balance -2354.15 -770 118 Weight 163.293 kg 160.1 kg Intake: IV 160 80 Sodium Chloride 0.9% 1, 160 80 000 ml @ 20 mls/hr IV . Q24H JAZMINE Rx#:[id number] Intake, IV Titration 235.85 Amount Nitroglycerin-D5w Pmx 50 235.85 mg In Dextrose/Water 1 250ml.bag @ 100 MCG/MIN 30 mls/hr IV .Q8H20M STA Rx#:[id number] Oral 600 118 Output: Urine 2750 1450 Other: Voiding Method Urinal Urinal - Exam GENERAL EXAM: Alert, pleasant, obese 43-year-old white male, comfortable in no apparent distress. Presently on nasal cannula, in no acute distress HEAD: Normocephalic/atraumatic. EYES: Normal reaction of pupils, equal size. Conjunctiva pink, sclera white. NOSE: Clear with pink turbinates. THROAT: No erythema or exudates. NECK: No masses, no JVD, no thyroid enlargement, no adenopathy. CHEST: No chest wall deformity. Symmetrical expansion. LUNGS: Equal air entry with diminished breath sounds, and bibasilar crackles CVS: Regular rate and rhythm, normal S1 and S2, no gallops, no murmurs, no rubs ABDOMEN: Soft, nontender. No hepatosplenomegaly, normal bowel sounds, no guarding or rigidity. EXTREMITIES: No clubbing, no edema, no cyanosis, 2+ pulses and upper and lower extremities. MUSCULOSKELETAL: Muscle strength and tone normal. SPINE: No scoliosis or deformity SKIN: No rashes CENTRAL NERVOUS SYSTEM: Alert and oriented -3. No focal deficits, tone is normal in all 4 extremities. PSYCHIATRIC: Alert and oriented -3. Appropriate affect. Intact judgment and insight. - Labs CBC & Chem 7: 04/27/18 05:14 04/27/18 05:14 Labs: Abnormal Lab Results - Last 24 Hours (Table) 04/26/18 04/26/18 04/26/18 Range/Units 08:30 10:32 13:44 Carbon Dioxide (22-30) mmol/L BUN (9-20) mg/dL POC Glucose (mg/dL) 106 H (75-99) mg/dL Phosphorus (2.5-4.5) mg/dL CK-MB (CK-2) 3.2 H* (0.0-2.4) ng/mL Troponin I 0.063 H* 0.043 H* (0.000-0.034) ng/mL LDL Cholesterol, Calc (0-99) mg/dL HDL Cholesterol (40-60) mg/dL 04/26/18 04/27/18 Range/Units 20:13 05:14 Carbon Dioxide 31 H (22-30) mmol/L BUN 22 H (9-20) mg/dL POC Glucose (mg/dL) (75-99) mg/dL Phosphorus 4.8 H (2.5-4.5) mg/dL CK-MB (CK-2) 3.3 H* (0.0-2.4) ng/mL Troponin I (0.000-0.034) ng/mL LDL Cholesterol, Calc 110 H (0-99) mg/dL HDL Cholesterol 18 L (40-60) mg/dL Assessment and Plan Assessment: Assessment: #1. Hypertensive urgency with secondary pulmonary edema and chest pain #2. Acute on chronic systolic congestive heart failure #3. Nonischemic cardiomyopathy, with EF of 30-35% #4. Hypertension, hyperlipidemia #5. Obstructive sleep apnea, severe, with AHI score of 56.5 and oxygen desaturation to 75%. Patient is currently not utilizing CPAP due to lack of insurance coverage #6. Morbid obesity, with BMI of 43.8 kg/m #7. Mild leukocytosis #8. Positive troponin #9. Prior history of smoking, quit a year ago, carries [id number] smoking history #10. History of childhood asthma #11. Anxiety, depression Plan: The patient was seen and evaluated by Dr. Randhawa. Chest x-ray and labs were reviewed. We'll continue with his current treatment plan. He continues to diurese well. X-ray improved. He is educated regarding the importance of his CPAP compliance at home. [facility] will [facility] with [facility] and his supplier regarding potential insurance coverage. He remains on Lovenox for DVT prophylaxis. Protonix for GI prophylaxis. We'll increase his activity as tolerated. We'll continue to follow. I, the cosigning physician, performed a history & physical examination of the patient. Lungs sounds with crackles in the bilateral posterior bases. Maintaining good O2 saturations in the 90s on 2 L/m per nasal cannula. I discussed the assessment and plan of care with my nurse practitioner, Isabel Medellin. I attest to the above note as dictated by her.
--- NOTE | 2018-04-27 12:11 | P.PN ---
Subjective Progress Note Date: 04/27/18 This is a 43-year-old gentleman who follows with Dr. Zuleta in the office. He has a known history of nonischemic cardiomyopathy, morbid obesity, obstructive sleep apnea, patient has not been able to use his CPAP because he lost his insurance, hypertension, hyperlipidemia, family history of premature coronary artery disease, patient did undergo cardiac catheterization in 2013 which revealed normal coronary arteries, ejection fraction by most recent echo performed in the office in June 2017 was 35%, mild TR, mild MR. Patient was seen and evaluated in the emergency room, he was transferred here from [facility], patient presented to [facility] with symptoms of severe difficulty in breathing which according to the patient has been going on for the past couple of weeks, symptoms much worse with minimal exertion, he states that he feels his lungs are tight and it's difficult to breathe. and also with lying flat. The patient, he's also noted some chills at home and states he's been coughing up white sputum. Laboratory data [facility], white blood cell count 11.2, hemoglobin 14.9, hematocrit 45.2. Platelet count 297. Sodium 143, potassium 4.2, magnesium 1.8, BUN 18, creatinine 1.2. Troponin 0.03. BNP level 8116. Chest x-ray performed earlier [facility] revealed cardiomegaly with no active cardiopulmonary disease. She was initiated on IV Lasix prior to transfer here and was also given a dose of IV Lasix on arrival here. EKG performed at [facility] shows a sinus rhythm with left bundle branch block pattern. EKG on arrival here shows what appears to be a multifocal atrial tachycardia with bundle branch block pattern. Blood pressure on arrival here 167/121, heart rate low 100s, 95% on BiPAP. Blood pressure here 165/101, 100% on BiPAP, heart rate in the 80s. Patient is currently on a baby aspirin, Lipitor 40 daily, Coreg 12-1/ 2 mg by mouth twice a day, Lovenox 40 mg subcu daily, 40 mg of IV Lasix twice a day, Zestril 20 mg daily, nitroglycerin drip, Aldactone 25 mg daily. 04/27/2018 Patient seen and examined this morning, overall feeling significantly better. Diuresed well through the night last night, weight is down 3 kg today BUN 22, creatinine 1.2, potassium 4.5, repeat chest x-ray did show improvement. Blood pressure 120/60 with a heart rate in the 70s. We'll continue with the current dose of IV Lasix. Objective - Vital Signs Vital signs: Vital Signs Temp 97.4 F L 04/27/18 11:15 Pulse 75 04/27/18 11:15 Resp 18 04/27/18 11:18 BP 145/98 04/27/18 11:15 Pulse Ox 95 04/27/18 11:15 Intake & Output 04/26/18 04/27/18 04/27/18 18:59 06:59 18:59 Intake Total 395.85 680 118 Output Total 2750 1450 Balance -2354.15 -770 118 Weight 163.293 kg 160.1 kg Intake: IV 160 80 Sodium Chloride 0.9% 1, 160 80 000 ml @ 20 mls/hr IV . Q24H [facility] Rx#:[id number] Intake, IV Titration 235.85 Amount Nitroglycerin-D5w Pmx 50 235.85 mg In Dextrose/Water 1 250ml.bag @ 100 MCG/MIN 30 mls/hr IV .Q8H20M [facility] Rx#:[id number] Oral 600 118 Output: Urine 2750 1450 Other: Voiding Method Urinal Urinal - Exam PHYSICAL EXAMINATION: GENERAL: 43-year-old gentleman in no acute distress at the time of my examination HEENT: Head is atraumatic, normocephalic. Pupils equal, round. Sclera anicteric. Conjunctiva are clear. Mucous membranes of the mouth are moist. Neck is supple. Difficult to assess jugular venous pressure. no carotid bruit is heard. HEART EXAMINATION: heart S1 and S2 systolic ejection murmur is heard CHEST EXAMINATION: Lungs reveal decreased air exchange throughout with scattered coarse rhonchi and wheezing ABDOMEN: Soft, obese, nontender . Bowel sounds are heard. No organomegaly noted. EXTREMITIES:1+ peripheral pulses with 1+ evidence of peripheral edema NEUROLOGIC [patient is awake, alert and oriented ?-3.] . - Labs CBC & Chem 7: 04/27/18 05:14 04/27/18 05:14 Labs: Abnormal Lab Results - Last 24 Hours (Table) 04/26/18 04/26/18 04/27/18 Range/Units 13:44 20:13 05:14 Carbon Dioxide 31 H (22-30) mmol/L BUN 22 H (9-20) mg/dL Phosphorus 4.8 H (2.5-4.5) mg/dL CK-MB (CK-2) 3.2 H* 3.3 H* (0.0-2.4) ng/mL Troponin I 0.043 H* (0.000-0.034) ng/mL LDL Cholesterol, Calc 110 H (0-99) mg/dL HDL Cholesterol 18 L (40-60) mg/dL Assessment and Plan Plan: Assessment and plan #1 respiratory distress with evidence of congestive heart failure, systolic acute on chronic #2 morbid obesity #3 nonischemic cardiomyopathy, most recent echo cardiac exam with Doppler study performed in the office revealed an ejection fraction of 35%. Patient did undergo a cardiac catheterization in 2013 which revealed normal coronary arteries #4 accelerated hypertension #5 hyperlipidemia #6 sleep apnea, patient is not currently using his CPAP because of insurance issues #7 asthma Plan Echocardiogram with Doppler study was performed which revealed an ejection fraction of 20-25%. We will continue current dose of IV Lasix. We also had a discussion with the patient regarding the need for AICD. DNP note has been reviewed, I agree with a documented findings and plan of care. Patient was seen and examined.
[2018-04-27] MEDS ORDERED: CALCIUM CARBONATE 500 MG CHEWABLE PO PRN (16:04)
--- NOTE | 2018-04-27 16:28 | P.PN ---
Progress Note - Text Progress Note Date: 04/27/18 Addendum note: Reviewing the clinical history on this patient, I believe the presentation was mostly a presentation of hypertensive emergency rather than hypertensive urgency.
[2018-04-28] MEDS: PANTOPRAZOLE 40 MG TABLET PO SCH ×2 (05:51→17:12)
[2018-04-28] MEDS: FUROSEMIDE 10 MG/ML 4 ML VIAL IV SCH (05:51)
[2018-04-28] MEDS: CARVEDILOL 12.5 MG TAB PO SCH ×2 (05:51→17:12)
[2018-04-28] MEDS: SODIUM CHLORIDE 0.9% 1,000 ML IV SCH (05:58)
[2018-04-28 06:26] LABS: Basophils % (A) 0 %; Eosinophils # (A) 0.3 k/uL (0-0.7); Eosinophils % (A) 3 %; HCT 43.5 % (39.0-53.0); HGB 13.6 gm/dL (13.0-17.5); Lymphocytes # (A) 1.7 k/uL (1.0-4.8); Lymphocytes % (A) 19 %; MCH 27.3 pg (25.0-35.0); MCHC 31.3 g/dL (31.0-37.0); MCV 87.1 fL (80.0-100.0); Monocytes # (A) 0.6 k/uL (0-1.0); Monocytes % (A) 6 %; Neutrophils # (A) 6.4 k/uL (1.3-7.7); Neutrophils % (A) 69 %; Platelet Count 236 k/uL (150-450); RDW 15.6 % (11.5-15.5); WBC 9.2 k/uL (3.8-10.6)
[2018-04-28 06:28] LABS: Anion Gap 5 mmol/L; Blood Urea Nitrogen 22 mg/dL (9-20); Calcium 8.6 mg/dL (8.4-10.2); Carbon Dioxide 31 mmol/L (22-30); Chloride 103 mmol/L (98-107); Glucose 89 mg/dL (74-99); Magnesium 2.2 mg/dL (1.6-2.3); Potassium 4.3 mmol/L (3.5-5.1); Sodium 139 mmol/L (137-145)
[2018-04-28] MEDS: LISINOPRIL 20 MG TAB PO SCH ×2 (09:39→20:00)
[2018-04-28] MEDS: ATORVASTATIN 40 MG TAB PO SCH (09:39)
[2018-04-28] MEDS: ASPIRIN 81 MG PO SCH (09:39)
[2018-04-28] MEDS: SPIRONOLACTONE 25 MG TAB PO SCH (09:39)
[2018-04-28] MEDS: ENOXAPARIN 40 MG/0.4 ML SYRINGE SQ SCH (09:39)
[2018-04-28 09:57] VITALS: BMI 42.5
--- NOTE | 2018-04-28 14:00 | P.PN ---
Subjective Progress Note Date: 04/28/18 Principal diagnosis: Shortness of breath Patient is a 43-year-old male past medical history of congestive heart failure with ejection fraction 10-15%, dyslipidemia, hypertension, sleep apnea, and asthma who initially presented to [facility]. They were concerned that he needed ICU admission he was subsequently transferred here.He underwent an extensive evaluation. His chest x-ray showed fluid overload and cardiomegaly. Initial laboratory analysis showed slightly elevated white blood cell count 11.2, hemoglobin 14.9, hematocrit 45.2, and platelets 297. His basic metabolic profile showed a sodium of 143, potassium 4.2, chloride 106, bicarb 23, BUN and 18, creatinine 1.5, and glucose 119. His troponin was less than 0.03 and his BNP was elevated at 8116. He was also extremely hypertensive and was started on a nitro drip. He was started on BiPAP therapy to help with his breathing. He was admitted to the ICU. He was started on scheduled Lasix, IV labetalol, and his home medications were restarted. He progressed well and was able to come off of the BiPAP. Repeat echo showed an ejection fraction of 20-25% and he will eventually need an AICD. He has been struggling due to lack of insurance but should have insurance coming through within the next 30 days. Patient seen and examined at bedside. He still reports intermittent tightness of his stomach with radiation up into his chest and into his jaw associated with shortness of breath, diaphoresis, and lightheadedness. He states he has had this at his job. It has now occurred at rest during this hospitalization. He is concerned about this and states when his tightness in his abdomen gets so bad he become short of breath and is unable to do any activity. We discussed that this is likely coming from a cardiac nature due to his nonischemic cardiomyopathy. We also discussed trial of the PPI which started since admission as well as checking a gallbladder ultrasound. Objective - Vital Signs Vital signs: Vital Signs Temp 97.7 F 04/28/18 08:50 Pulse 72 04/28/18 08:50 Resp 18 04/28/18 09:01 BP 125/80 04/28/18 08:50 Pulse Ox 93 L 04/28/18 08:50 Intake & Output 04/27/18 04/28/18 04/28/18 18:59 06:59 18:59 Intake Total 358 360 Output Total 300 Balance 358 -300 360 Weight 158.5 kg Intake: Oral 358 360 Output: Urine 300 Other: Voiding Method Urinal Urinal # Voids 3 - Exam General: non toxic, no distress, appears older stated age, Obese Derm: warm, dry Head: atraumatic, normocephalic, symmetric Eyes: EOMI, no lid lag, anicteric sclera Mouth: no lip lesion, mucus membranes moist Cardiovascular: S1S2 reg, no murmur, positive posterior tibial pulse bilateral, Lungs: decreased bs b/l bases with rhonchi left base, no rhonchi, no rales , no accessory muscle use Abdominal: soft, nontender to palpation, no guarding, no appreciable organomegaly Ext: no gross muscle atrophy, 2+ edema, no contractures Neuro: CN II-XI grossly intact, no focal neuro deficits Psych: Alert, oriented, appropriate affect - Labs CBC & Chem 7: 04/28/18 05:24 04/28/18 05:24 Labs: Abnormal Lab Results - Last 24 Hours (Table) 04/28/18 04/28/18 Range/Units 05:24 05:24 RDW 15.6 H (11.5-15.5) % Carbon Dioxide 31 H (22-30) mmol/L BUN 22 H (9-20) mg/dL Assessment and Plan Assessment: Acute exacerbation of systolic congestive heart failure, last ejection fraction 10-15% via cath in 2013 -Lasix twice a day, strict I's and O's, daily weight -Continue with lisinopril, Coreg, Aldactone -Telemetry monitoring -Cardiology recs -Echocardiogram with EF 20-25% Hypertensive emergency, resolved -Continue with Coreg, Lisinopril, Spironolactone Abdominal pain - possible cardiac related, Trial of PPI, and check liver US -Aspirin, Lipitor - D/W cardio outpatient stress test Dyslipidemia -Increase lipitor to 80 mg daily Obstructive sleep apnea -Does not have CPAP at home secondary to insurance and will not order at this point in time Morbid obesity, BMI 42.5 -Recommend structured outpatient weight loss Leukocytosis, resolved Acute hypoxic respiratory failure, resolved DVT prophylaxis: Lovenox Discussed with:Patient, nursing, light bulb replacer Anticipated discharge date: 24-[address]: Home A total of 25 minutes was spent on the care of this complex patient more than 50 % of the time was spent in counseling and care coordination.
--- NOTE | 2018-04-28 15:51 | US ---
EXAMINATION TYPE: US liver DATE OF EXAM: 04/28/2018 COMPARISON: NONE CLINICAL HISTORY: pain. EXAM MEASUREMENTS: Liver Length: 17.7 cm Gallbladder Wall: 0.5 cm CBD: 0.7 cm Right Kidney: 12.7 x 5.1 x 5.6 cm Patient of large body habitus. Pancreas: Tail obscured by overlying bowel gas Liver: wnl Gallbladder: possible sludge Evidence for sonographic Herrera's sign: no CBD: wnl Right Kidney: wnl Exam suboptimal due to patient's large body habitus. IMPRESSION: No worrisome intrahepatic mass or intrahepatic ductal dilatation is seen on images saved.
--- NOTE | 2018-04-28 17:02 | PN ---
PROGRESS NOTE This patient was admitted with congestive cardiac failure. He is feeling better. The patient complains of intermittent heartburn that he has been having for some time and it is not related to exertion. The patient has a history of nonischemic cardiomyopathy. First and second heart sounds are normal. Lungs are clinically clear to auscultation and percussion. Patient's echocardiogram reveals a severely impaired left ventricular systolic function. RECOMMENDATIONS: We would continue the current treatment. Patient will be ambulated. If he is feeling okay patient can be discharged home. I have advised the patient to discuss with Dr. Zuleta regarding the AICD placement in view of the severely impaired left ventricular systolic function. MMODL / IJN: [id number] /
[2018-04-28] MEDS: FUROSEMIDE 40 MG TAB PO SCH (17:12)
[2018-04-29] MEDS: PANTOPRAZOLE 40 MG TABLET PO SCH (06:42)
[2018-04-29] MEDS: CARVEDILOL 12.5 MG TAB PO SCH (06:42)
[2018-04-29 06:44] LABS: Basophils % (A) 0 %; Eosinophils # (A) 0.3 k/uL (0-0.7); Eosinophils % (A) 4 %; HCT 44.7 % (39.0-53.0); HGB 13.9 gm/dL (13.0-17.5); Lymphocytes # (A) 1.8 k/uL (1.0-4.8); Lymphocytes % (A) 20 %; MCH 27.1 pg (25.0-35.0); MCHC 31.2 g/dL (31.0-37.0); MCV 86.8 fL (80.0-100.0); Mean Platelet Volume 7.1; Monocytes # (A) 0.5 k/uL (0-1.0); Monocytes % (A) 5 %; Neutrophils # (A) 6.2 k/uL (1.3-7.7); Neutrophils % (A) 69 %; Platelet Count 259 k/uL (150-450); RBC 5.15 m/uL (4.30-5.90); RDW 15.5 % (11.5-15.5); WBC 9.1 k/uL (3.8-10.6)
[2018-04-29 07:15] LABS: Anion Gap 7 mmol/L; Blood Urea Nitrogen 23 mg/dL (9-20); Carbon Dioxide 31 mmol/L (22-30); Chloride 101 mmol/L (98-107); Glucose 101 mg/dL (74-99); Magnesium 2.2 mg/dL (1.6-2.3); Phosphorus 4.3 mg/dL (2.5-4.5); Potassium 4.8 mmol/L (3.5-5.1); Sodium 139 mmol/L (137-145)
[2018-04-29 08:53] VITALS: BP 129/87; PULSE 71; RESP 18; TEMP 97.7
[2018-04-29] MEDS: ENOXAPARIN 40 MG/0.4 ML SYRINGE SQ SCH (08:59)
[2018-04-29] MEDS: LISINOPRIL 20 MG TAB PO SCH (08:59)
[2018-04-29] MEDS: ASPIRIN 81 MG PO SCH (08:59)
[2018-04-29] MEDS: SODIUM CHLORIDE 0.9% 1,000 ML IV SCH (08:59)
[2018-04-29] MEDS: FUROSEMIDE 40 MG TAB PO SCH (08:59)
[2018-04-29] MEDS: SPIRONOLACTONE 25 MG TAB PO SCH (08:59)
[2018-04-29] MEDS ORDERED: ISOSORBIDE MONONITRATE ER 30 MG TAB.ER.24H PO SCH (09:15)
--- NOTE | 2018-04-29 09:31 | P.DS ---
Providers Date of admission: 04/26/18 06:40 Expected date of discharge: 04/29/18 Attending physician: Selina Huang MD Consults: 04/26/18 06:42 Consult Physician Routine Consulting Provider: Regina Hinojosa Consult Reason/Comments: CHF exacerbation Do you want consulting provider notified?: Yes 04/26/18 08:09 Consult Physician Stat Consulting Provider: Elham Randhawa Consult Reason/Comments: ICU Do you want consulting provider notified?: Yes Primary care physician: Stated None Hospital Course: Discharge Diagnosis: Acute exacerbation of systolic congestive heart failure with ejection fraction 20-25% Hypertensive emergency GERD Dyslipidemia Obstructive sleep apnea Morbid obesity with BMI 42.5 Leukocytosis Acute hypoxic respiratory failure Hospital Course: Patient is a 43-year-old male past medical history of congestive heart failure with ejection fraction 20-25%, dyslipidemia, hypertension, sleep apnea, and asthma who initially presented to [facility]. They were concerned that he needed ICU admission he was subsequently transferred here. He underwent an extensive evaluation. His chest x-ray showed fluid overload and cardiomegaly. Initial laboratory analysis showed slightly elevated white blood cell count 11.2, hemoglobin 14.9, hematocrit 45.2, and platelets 297. His basic metabolic profile showed a sodium of 143, potassium 4.2, chloride 106, bicarb 23, BUN and 18, creatinine 1.5, and glucose 119. His troponin was less than 0.03 and his BNP was elevated at 8116. He was also extremely hypertensive and was started on a nitro drip. He was started on BiPAP therapy to help with his breathing. He was admitted to the ICU. He was started on scheduled Lasix, IV labetalol, and his home medications were restarted. He progressed well and was able to come off of the BiPAP. Repeat echo showed an ejection fraction of 20-25% and he will eventually need an AICD. He has been struggling due to lack of insurance but should have insurance coming through within the next 30 days. He was complaining of chest/abdominal pain associated with acid reflux and shortness of breath. He was up and ambulating in the hallways without difficulty. He had a gallbladder US that showed sludge in the gallbladder, how ever this pain has not been associated with eating. His liver enzymes and bilirubin were negative. I have recommended outpatient evaluation with PCP for further eval of this pain and possible GI evaluation for his GERD. He will complete a trial of protonix twice daily to see if this relieves the discomfort. Discussed with cardiology who recommends outpatient follow-up. We will increase his home Lasix to twice a day and Imdur. Cardiology cleared him for discharge. He was discharged home in stable condition. He will remain on lisinopril, Coreg, Aldactone. He does need to be evaluated for an AICD in the future will need to follow with Dr. Zuleta. He will also need to follow with Dr. Pimentel for reevaluation of his obstructive sleep apnea and resume his CPAP. Patient needs to establish with a PCP. He believe that he wants to follow with Dr. Lomeli. Patient seen and examined at bedside. He is up and ambulating in the hallways. He states that he again started having stomach and chest tightness after drinking coffee this morning. He states that the stomach tightening starts after his acid reflux start. D/W him trial of PPI and GERD. As well as Gallbladder results and need to follow-up understands the importance of follow- up with solutions architect consultant and PCP. Continues to have some blood when coughing hard but it is decreasing Vital signs reviewed and stable. General: non toxic, no distress, appears at stated age, Morbid obesity. Derm: warm, dry Head: atraumatic, normocephalic, symmetric Eyes: EOMI, no lid lag, anicteric sclera Mouth: no lip lesion, mucus membranes moist Cardiovascular: S1S2 reg, no murmur, positive posterior tibial pulse bilateral, Lungs: decreased bs b/l bases, due to body habitus, no rhonchi, no rales , no accessory muscle use Abdominal: soft, nontender to palpation, no guarding, no appreciable organomegaly Ext: no gross muscle atrophy, no edema, no contractures Neuro: CN II-XI grossly intact, no focal neuro deficits Psych: Alert, oriented, appropriate affect A total of 35 minutes of time were spent preparing this complex discharge summary . Pertinent Studies: Liver ultrasound-no worrisome intrahepatic mass or intrahepatic ductal dilatation Echocardiogram-ejection fraction 20-25%, severely dilated right ventricle, pulmonary hypertension with RVSP 42.3 Chest x-ray-no acute process Patient Condition at Discharge: Stable Plan - Discharge Summary Discharge Rx Participant: No New Discharge Prescriptions: New Atorvastatin [Lipitor] 80 mg PO HS #30 tab Furosemide [Lasix] 40 mg PO BID@0900,1600 #60 tab Isosorbide Mononitrate ER [Imdur] 30 mg PO DAILY #30 tab Lisinopril [Zestril] 20 mg PO BID #60 tab Pantoprazole [Protonix] 40 mg PO AC-BID #60 tablet. Spironolactone [Aldactone] 25 mg PO DAILY #30 tab Continue Aspirin EC [Ecotrin Low Dose] 81 mg PO DAILY Carvedilol [Coreg*] 12.5 mg PO BID #60 tab Discontinued Spironolactone [Aldactone] 25 mg PO DAILY Atorvastatin [Lipitor] 40 mg PO DAILY Lisinopril [Zestril] 20 mg PO DAILY Furosemide [Lasix] 40 mg PO DAILY #90 tab Discharge Medication List Aspirin EC [Ecotrin Low Dose] 81 mg PO DAILY 05/15/14 [History] Atorvastatin [Lipitor] 80 mg PO HS #30 tab 04/29/18 [Rx] Carvedilol [Coreg*] 12.5 mg PO BID #60 tab 04/29/18 [Rx] Furosemide [Lasix] 40 mg PO BID@0900,1600 #60 tab 04/29/18 [Rx] Isosorbide Mononitrate ER [Imdur] 30 mg PO DAILY #30 tab 04/29/18 [Rx] Lisinopril [Zestril] 20 mg PO BID #60 tab 04/29/18 [Rx] Pantoprazole [Protonix] 40 mg PO AC-BID #60 tablet. 04/29/18 [Rx] Spironolactone [Aldactone] 25 mg PO DAILY #30 tab 04/29/18 [Rx] Follow up Appointment(s)/Referral(s): [facility] [Provider Group] - 2 Weeks Elham Randhawa MD [STAFF PHYSICIAN] - 1 Week Maria Esther Roberson MD [STAFF PHYSICIAN] - As Needed Primitivo Lomeli MD [REFERRING] - 1 Week Patient Instructions/Handouts: Heart Failure (DC), Heart Healthy Diet (DC) Activity/Diet/Wound Care/Special Instructions: Heart Healthy Diet, Activity as tolerated May return to work on 05/02/18 Discharge Disposition: HOME SELF-CARE
--- NOTE | 2018-04-29 10:41 | P.PN ---
Subjective Progress Note Date: 04/29/18 This is a 43-year-old gentleman who follows with Dr. Zuleta in the office. He has a known history of nonischemic cardiomyopathy, morbid obesity, obstructive sleep apnea, patient has not been able to use his CPAP because he lost his insurance, hypertension, hyperlipidemia, family history of premature coronary artery disease, patient did undergo cardiac catheterization in 2013 which revealed normal coronary arteries, ejection fraction by most recent echo performed in the office in June 2017 was 35%, mild TR, mild MR. Patient was seen and evaluated in the emergency room, he was transferred here from [facility], patient presented to [facility] with symptoms of severe difficulty in breathing which according to the patient has been going on for the past couple of weeks, symptoms much worse with minimal exertion, he states that he feels his lungs are tight and it's difficult to breathe. and also with lying flat. The patient, he's also noted some chills at home and states he's been coughing up white sputum. Laboratory data [facility], white blood cell count 11.2, hemoglobin 14.9, hematocrit 45.2. Platelet count 297. Sodium 143, potassium 4.2, magnesium 1.8, BUN 18, creatinine 1.2. Troponin 0.03. BNP level 8116. Chest x-ray performed earlier [facility] revealed cardiomegaly with no active cardiopulmonary disease. She was initiated on IV Lasix prior to transfer here and was also given a dose of IV Lasix on arrival here. EKG performed at [facility] shows a sinus rhythm with left bundle branch block pattern. EKG on arrival here shows what appears to be a multifocal atrial tachycardia with bundle branch block pattern. Blood pressure on arrival here 167/121, heart rate low 100s, 95% on BiPAP. Blood pressure here 165/101, 100% on BiPAP, heart rate in the 80s. Patient is currently on a baby aspirin, Lipitor 40 daily, Coreg 12-1/ 2 mg by mouth twice a day, Lovenox 40 mg subcu daily, 40 mg of IV Lasix twice a day, Zestril 20 mg daily, nitroglycerin drip, Aldactone 25 mg daily. 04/27/2018 Patient seen and examined this morning, overall feeling significantly better. Diuresed well through the night last night, weight is down 3 kg today BUN 22, creatinine 1.2, potassium 4.5, repeat chest x-ray did show improvement. Blood pressure 120/60 with a heart rate in the 70s. We'll continue with the current dose of IV Lasix. 04/28/2018 Patient seen and examined this morning, breathing is significantly improved. Continues to complain of intermittent heartburn. No EKG changes. Blood pressure 128/80 with a heart rate in the 70s, 94% on room air. White blood cell count 9.1, hemoglobin 13.9, platelet count 259. Sodium 139, potassium 4.8 , BUN 23, creatinine 1.1, magnesium 2.2. Weight is down 1 kg today. Currently on oral Diuretics. Objective - Vital Signs Vital signs: Vital Signs Temp 97.7 F 04/29/18 08:53 Pulse 71 04/29/18 08:53 Resp 18 04/29/18 08:53 BP 129/87 04/29/18 08:53 Pulse Ox 94 L 04/29/18 08:53 Intake & Output 04/28/18 04/29/18 04/29/18 18:59 06:59 18:59 Intake Total 600 10 180 Balance 600 10 180 Weight 158.5 kg 157.8 kg Intake: IV 10 Sodium Chloride 0.9% 1, 10 000 ml @ 20 mls/hr IV . Q[facility]H [facility] Rx#:[id number] Oral 600 180 Other: Voiding Method Urinal Urinal Urinal # Voids 0 1 - Exam PHYSICAL EXAMINATION: GENERAL: 43-year-old gentleman in no acute distress at the time of my examination HEENT: Head is atraumatic, normocephalic. Pupils equal, round. Sclera anicteric. Conjunctiva are clear. Mucous membranes of the mouth are moist. Neck is supple. Difficult to assess jugular venous pressure. no carotid bruit is heard. HEART EXAMINATION: heart S1 and S2 systolic ejection murmur is heard CHEST EXAMINATION: Lungs reveal improvement in air entry bilaterally ABDOMEN: Soft, obese, nontender . Bowel sounds are heard. No organomegaly noted. EXTREMITIES:1+ peripheral pulses with trace evidence of peripheral edema NEUROLOGIC [patient is awake, alert and oriented ?-3.] . - Labs CBC & Chem 7: 04/29/18 05:31 04/29/18 05:31 Labs: Abnormal Lab Results - Last 24 Hours (Table) 04/29/18 Range/Units 05:31 Carbon Dioxide 31 H (22-30) mmol/L BUN 23 H (9-20) mg/dL Glucose 101 H (74-99) mg/dL Assessment and Plan Plan: Assessment and plan #1 respiratory distress with evidence of congestive heart failure, systolic acute on chronic #2 morbid obesity #3 nonischemic cardiomyopathy, most recent echo cardiac exam with Doppler study performed in the office revealed an ejection fraction of 35%. Patient did undergo a cardiac catheterization in 2013 which revealed normal coronary arteries #4 accelerated hypertension #5 hyperlipidemia #6 sleep apnea, patient is not currently using his CPAP because of insurance issues #7 asthma Plan Echocardiogram with Doppler study was performed which revealed an ejection fraction of 20-25%. From cardiology's perspective, patient may be able to be discharged home today. We'll make him a follow-up appointment to see Dr. Zuleta in the office post discharge. DNP note has been reviewed, I agree with a documented findings and plan of care. Patient was seen and examined.
[2018-04-29] MEDS ORDERED: ATORVASTATIN 80 MG TAB PO SCH (21:00)
== END 2018-04-29 12:30 | disposition home or self-care (01) | DRG 291 ==
LOC: EC 05:35 → SUPCPDRO 05:35 → 6ICU 06:40 → 6SEL 22:45
PROVIDERS: ADMIT Internal Medicine; ATTEND Internal Medicine
DX: I11.0 Hypertensive heart disease with heart failure (principal); J96.01 Acute respiratory failure with hypoxia; I16.1 Hypertensive emergency; I47.1 Supraventricular tachycardia; Z68.41 Body mass index [BMI] 40.0-44.9, adult; R04.2 Hemoptysis; I50.23 Acute on chronic systolic (congestive) heart failure; E66.01 Morbid (severe) obesity due to excess calories; E78.2 Mixed hyperlipidemia; F32.9 Major depressive disorder, single episode, unspecified; F41.9 Anxiety disorder, unspecified; G47.33 Obstructive sleep apnea (adult) (pediatric); I42.9 Cardiomyopathy, unspecified; I44.7 Left bundle-branch block, unspecified; J45.20 Mild intermittent asthma, uncomplicated; D72.829 Elevated white blood cell count, unspecified; K21.9 Gastro-esophageal reflux disease without esophagitis; Z79.899 Other long term (current) drug therapy; Z82.3 Family history of stroke; Z82.49 Family history of ischemic heart disease and other diseases of the circulatory system; Z83.3 Family history of diabetes mellitus; Z87.09 Personal history of other diseases of the respiratory system; Z87.891 Personal history of nicotine dependence; Z79.82 Long term (current) use of aspirin; R74.8 Abnormal levels of other serum enzymes
CPT/HCPCS: 71045; 76705; 80048; 80053; 80061; 81003; 82553; 83036; 83735; 83880; 84100; 84484; 85025; 85610; 85730; 93005; 93306; 94660; 96365; 96366; 96372; 96375; 99285

== ENCOUNTER 2018-09-14 01:10 | Emergency (ER) | payer OTHER ==
--- NOTE | 2018-09-14 03:11 | ED ---
General Adult HPI - General Chief complaint: Recheck/Abnormal Lab/Rx Stated complaint: Anxiety Time Seen by Provider: 09/14/18 01:59 Source: patient, EMS Mode of arrival: EMS Limitations: no limitations - History of Present Illness Initial comments: Leroy mota is an obese 43-year-old male presents the emergency department for reevaluation of sensation of closing of his throat and difficulty breathing as well as the development of a muscle twitch in his neck. Patient was evaluated outside facility approximately a week ago for identical symptoms at that time when he told them he was having closing of his throat he was treated for possible anaphylaxis with IM epinephrine which he reports made him feel much worse. Patient reports that after receiving medications he was feeling better and was discharged home. He reports that throughout the week she's had a persistent sensation when he lays down his throat is being crushed. Patient reports it did improve somewhat when he is sitting up but he will have sensation of tightness around his throat and then will feel like he is having muscle spasms in his neck and face. Patient reports he has no history of muscle spasms or twitches but feels as though he has developed a muscle tech of his face and neck. Patient was advised during this previous ER visit to follow up with the neurology however due to the holiday he has been unable to do so. - Related Data Home Medications Medication Instructions Recorded Confirmed Aspirin EC [Ecotrin Low Dose] 81 mg PO DAILY 05/15/14 04/26/18 Previous Rx's Medication Instructions Recorded Atorvastatin [Lipitor] 80 mg PO HS #30 tab 04/29/18 Carvedilol [Coreg*] 12.5 mg PO BID #60 tab 04/29/18 Furosemide [Lasix] 40 mg PO BID@0900,1600 #60 tab 04/29/18 Isosorbide Mononitrate ER [Imdur] 30 mg PO DAILY #30 tab 04/29/18 Lisinopril [Zestril] 20 mg PO BID #60 tab 04/29/18 Pantoprazole [Protonix] 40 mg PO AC-BID #60 tablet. 04/29/18 Spironolactone [Aldactone] 25 mg PO DAILY #30 tab 04/29/18 Allergies Allergy/AdvReac Type Severity Reaction Status Date / Time No Known Allergies Allergy Verified 09/14/18 01:21 Review of Systems ROS Statement: Those systems with pertinent positive or pertinent negative responses have been documented in the HPI. ROS Other: All systems not noted in ROS Statement are negative. Past Medical History Past Medical History: Asthma, Heart Failure, Hyperlipidemia, Hypertension Additional Past Medical History / Comment(s): CHILDHOOD ASTHMA, obstructive sleep apnea, currently not on C-Pap therapy, cardiomegaly, CHF History of Any Multi-Drug Resistant Organisms: None Reported Past Surgical History: Orthopedic Surgery, Tonsillectomy Additional Past Surgical History / Comment(s): STATES HAS PINS IN [place] LEGS Past Anesthesia/Blood Transfusion Reactions: No Reported Reaction Past Psychological History: Anxiety, Depression Smoking Status: Former smoker Past Alcohol Use History: Rare Past Drug Use History: None Reported - Past Family History Father Family Medical History: CVA/TIA, Myocardial Infarction ([place]) Additional Family Medical History / Comment(s): Father had MIs and CVAs and at the age of 47yrs. Mother Family Medical History: Diabetes Mellitus Additional Family Medical History / Comment(s): Mother has peripheral neuropathy. She is obese. General Exam - General Exam Comments Initial Comments: Physical Exam GENERAL: Patient is well-developed and well-nourished. Patient is nontoxic and well-hydrated and is in no distress. Morbidly obese HENT: Normocephalic, Atraumatic. Normal oral pharynx, no tonsillar injection or erythema, no uvula edema Good Dentition TMs normal bilaterally No cervical lymphadenopathy EYES: PERRL, EOMI PULMONARY: Unlabored respirations. No audible rales rhonchi or wheezing was noted. CARDIOVASCULAR: There is a regular rate and rhythm without any murmurs gallops or rubs. ABDOMEN: obese, Soft and nontender with normal bowel sounds. SKIN: Skin is clear with no lesions or rashes and otherwise unremarkable. : Deferred NEUROLOGIC: Patient is alert and oriented x3. Moving all extremities spontaneously Patient is noted to have frequent tics of his face and neck which he states are new over the past 1-2 weeks MUSCULOSKELETAL: Normal extremities with adequate strength and full range of motion. No lower extremity swelling or edema. No calf tenderness. PSYCHIATRIC: is appearing Limitations: no limitations Limitations: no limitations Course Vital Signs 09/14/18 09/14/18 09/14/18 01:17 01:40 02:10 Temperature 98.8 F Pulse Rate 110 H 105 H 100 Respiratory 26 H 29 H 3 L Rate Blood Pressure 144/115 112/90 145/99 O2 Sat by Pulse 96 98 96 Oximetry 09/14/18 09/14/18 09/14/18 02:40 03:00 03:20 Temperature Pulse Rate 103 H 86 86 Respiratory 17 19 18 Rate Blood Pressure 125/98 125/98 141/93 O2 Sat by Pulse 98 97 97 Oximetry 09/14/18 09/14/18 04:00 04:50 Temperature 97.0 F L Pulse Rate 91 78 Respiratory 10 L 18 Rate Blood Pressure 126/88 151/90 O2 Sat by Pulse 97 97 Oximetry EKG Findings - EKG Comments: EKG Findings:: EKG was obtained at 1:33 AM, rate is 1., rhythm is sinus with a right bundle branch block, normal axis normal intervals no acute ST elevations or depressions no evidence of acute ischemia or infarction. Medical Decision Making - Medical Decision Making Patient was seen and evaluated history is obtained from the patient. Patient presenting with subjective feeling of his throat closing when he lays flat, patient also reports the facial tics have developed over the past 1-2 weeks and is been unable to establish follow-up with neurology. Patient reports outside evaluation today included any imaging of his brain or cervical spine As and imaging ordered The patient's description of his feeling of his throat closing when laying flat sounds suggestive of obstructive sleep apnea given his body habitus. When I discussed this with the patient he did admit that he has had a sleep study in the past and was advised that he needed a CPAP machine for obstructive sleep apnea however he didn't feel this symptomatic at that time. Patient also states he could not afford the CPAP machine and therefore has not gotten one. Labs and imaging were unremarkable Results were discussed with the patient who is agreeable to plan for discharge home with outpatient follow-up with primary care, neurology and possible reevaluation for obstructive sleep apnea. All questions pertaining care were answered best my ability patient was discharged home in stable condition. - Lab Data Result diagrams: 09/14/18 03:43 09/14/18 03:43 Lab Results 09/14/18 09/14/18 Range/Units 03:43 03:43 WBC 12.7 H (3.8-10.6) k/uL RBC 4.74 (4.30-5.90) m/uL Hgb 13.9 (13.0-17.5) gm/dL Hct 42.6 (39.0-53.0) % MCV 90.0 (80.0-100.0) fL MCH 29.3 (25.0-35.0) pg MCHC 32.6 (31.0-37.0) g/dL RDW 15.1 (11.5-15.5) % Plt Count 326 (150-450) k/uL Neutrophils % 69 % Lymphocytes % 20 % Monocytes % 5 % Eosinophils % 3 % Basophils % 0 % Neutrophils # 8.8 H (1.3-7.7) k/uL Lymphocytes # 2.6 (1.0-4.8) k/uL Monocytes # 0.7 (0-1.0) k/uL Eosinophils # 0.3 (0-0.7) k/uL Basophils # 0.1 (0-0.2) k/uL Sodium 139 (137-145) mmol/L Potassium 4.3 (3.5-5.1) mmol/L Chloride 108 H (98-107) mmol/L Carbon Dioxide 24 (22-30) mmol/L Anion Gap 7 mmol/L BUN 27 H (9-20) mg/dL Creatinine 0.83 (0.66-1.25) mg/dL Est GFR (CKD-EPI)AfAm >90 (>60 ml/min/1.73 sqM) Est GFR (CKD-EPI)NonAf >90 (>60 ml/min/1.73 sqM) Glucose 124 H (74-99) mg/dL Calcium 9.2 (8.4-10.2) mg/dL Magnesium 2.1 (1.6-2.3) mg/dL Total Bilirubin 0.4 (0.2-1.3) mg/dL AST 22 (17-59) U/L ALT 34 (21-72) U/L Alkaline Phosphatase 60 (38-126) U/L Total Protein 7.2 (6.3-8.2) g/dL Albumin 3.8 (3.5-5.0) g/dL Disposition Clinical Impression: Muscle tremor Disposition: HOME SELF-CARE Condition: Good Instructions: Spasmodic Torticollis (ED), Muscle Spasm (ED), Tic Disorder (ED) Is patient prescribed a controlled substance at d/c from ED?: No Referrals: Aba Culver DO [Primary Care Provider] - 1-2 days Hien Macias MD [STAFF PHYSICIAN] - 1-2 days
[2018-09-14 03:58] LABS: Basophils # (A) 0.1 k/uL (0-0.2); Basophils % (A) 0 %; Eosinophils # (A) 0.3 k/uL (0-0.7); Eosinophils % (A) 3 %; HCT 42.6 % (39.0-53.0); HGB 13.9 gm/dL (13.0-17.5); Lymphocytes # (A) 2.6 k/uL (1.0-4.8); Lymphocytes % (A) 20 %; MCH 29.3 pg (25.0-35.0); MCHC 32.6 g/dL (31.0-37.0); Mean Platelet Volume 6.8; Monocytes # (A) 0.7 k/uL (0-1.0); Monocytes % (A) 5 %; Neutrophils # (A) 8.8 k/uL (1.3-7.7); Neutrophils % (A) 69 %; Platelet Count 326 k/uL (150-450); RBC 4.74 m/uL (4.30-5.90); RDW 15.1 % (11.5-15.5); WBC 12.7 k/uL (3.8-10.6)
[2018-09-14 04:01] LABS: ALT 34 U/L (21-72); AST 22 U/L (17-59); Albumin 3.8 g/dL (3.5-5.0); Alkaline Phosphatase 60 U/L (38-126); Anion Gap 7 mmol/L; Blood Urea Nitrogen 27 mg/dL (9-20); Calcium 9.2 mg/dL (8.4-10.2); Carbon Dioxide 24 mmol/L (22-30); Chloride 108 mmol/L (98-107); Glucose 124 mg/dL (74-99); Magnesium 2.1 mg/dL (1.6-2.3); Potassium 4.3 mmol/L (3.5-5.1); Sodium 139 mmol/L (137-145); Total Bilirubin 0.4 mg/dL (0.2-1.3); Total Protein 7.2 g/dL (6.3-8.2)
--- NOTE | 2018-09-14 04:14 | CT ---
EXAMINATION TYPE: CT soft tissue neck w con DATE OF EXAM: 09/14/2018 4:03 AM COMPARISON: None HISTORY: muscle tremors CT DLP: 662.5 mGycm Automated exposure control for dose reduction was used. CONTRAST: CT scan of the neck is performed following with IV Contrast, patient injected with 100 mL of Isovue 3 00. Axial images are obtained, coronal and sagittal reformatted images are reviewed. FINDINGS: There is normal branching pattern of the great vessels on the aortic arch. Thyroid gland is symmetric . There is bilateral contrast opacification of the vertebral arteries. There is bilateral contrast op acification of the common internal and external carotid arteries. There is plaque formation at the ca rotid artery bifurcations. I see no cervical adenopathy. There is no evidence of a pharyngeal mass. E piglottis appears normal. Tonsils and adenoids are within normal limits. The submandibular salivary g lands are symmetric. Parotid glands are symmetric. There are small mucous retention cysts in the maxi llary sinuses. There is no evidence of retropharyngeal mass. There is minor spurring in the cervical spine. IMPRESSION: Negative CT scan of the cervical soft tissues.
--- NOTE | 2018-09-14 04:15 | CT ---
EXAMINATION TYPE: CT brain wo con DATE OF EXAM: 09/14/2018 COMPARISON: None HISTORY: muscle tremors CT DLP: 1111 mGycm. Automated Exposure Control for Dose Reduction was Utilized. TECHNIQUE: CT scan of the head is performed without contrast. FINDINGS: Ventricles of normal size. There is no mass effect nor midline shift. There is no sign of i ntracranial hemorrhage. The calvarium is intact. IMPRESSION: Negative CT scan of the brain.
[2018-09-14 05:02] VITALS: BP 151/90; PULSE 78; RESP 18; TEMP 97
== END 2018-09-14 04:48 | disposition home or self-care (01) ==
LOC: EC 01:10 → SUPCPDRO 01:10 → EC 04:48
DX: R25.1 Tremor, unspecified (principal); R09.89 Other specified symptoms and signs involving the circulatory and respiratory systems; R06.00 Dyspnea, unspecified; E66.01 Morbid (severe) obesity due to excess calories; Z87.891 Personal history of nicotine dependence; Z79.82 Long term (current) use of aspirin; Z68.41 Body mass index [BMI] 40.0-44.9, adult
CPT/HCPCS: 36415; 93005; 80053; 83735; 85025; 70491; 70450; 99284; Q9967

== ENCOUNTER → 2019-03-20 | Outpatient (CLI) | payer OTHER ==
--- NOTE | 2019-03-20 14:00 | FL ---
COMPARISON: NONE DATE OF EXAM: 03/20/2019 HISTORY: Dysphasia A number of thin and thick substances were ingested under the care of the department of speech pathol ogy. There is no evidence of aspiration or penetration. There is no evidence of obstruction. No im ages submitted and 45 seconds of fluoroscopy provided IMPRESSION: 1. No evidence of aspiration or penetration.
== END | disposition home or self-care (01) ==
LOC: RADFLMAIN 11:31
PROVIDERS: ATTEND Psychiatry & Neurology Neurology
DX: R13.10 Dysphagia, unspecified (principal); G24.4 Idiopathic orofacial dystonia
CPT/HCPCS: 74230

== ENCOUNTER → 2022-06-08 | Outpatient (CLI) | payer OTHER ==
--- NOTE | 2022-06-08 09:01 | CT ---
EXAMINATION TYPE: CT cervical spine wo con DATE OF EXAM: 06/08/2022 COMPARISON: 09/14/2018 HISTORY: Cervicalgia CT DLP: 984.68 mGycm CONTRAST: None CT of the cervical spine is performed in the axial plane at 2 mm thick sections. Reconstructed image s in the coronal, and sagittal plane are reviewed on the computer. Beam hardening artifact is present through the lower cervical spine. No acute fractures are evident. Vertebral body alignment is normal. Disc heights are preserved. Vertebral body heights are preserved. No spinal canal stenosis is evident Mild facet hypertrophy is present C2-3 C3-4 on the left with minimal foraminal narrowing. IMPRESSIONS: 1. Mild left foraminal narrowing upper cervical spine
--- NOTE | 2022-06-08 11:39 | CT ---
EXAMINATION TYPE: CT shoulder LT wo con DATE OF EXAM: 06/08/2022 COMPARISON: None HISTORY: Left shoulder pain CT DLP: 576.41 mGycm Automated exposure control for dose reduction was used. Contrast: None Technique: Axial images 2 mm thick sections. Reconstructed images in coronal and sagittal planes. 3-D reconstructed images performed. Technologist on separate computer are reviewed. FINDINGS: There is some acromioclavicular joint hypertrophy with inferior spurring which can contribute to impi ngement syndrome. The humeral head articulates with the glenoid. There is mild elevation of the humer al head in relation to the glenoid. No acute fractures are evident. Coracoid appears normal. Pacemaker overlies the left chest. IMPRESSION: 1. MILD DEGENERATIVE TYPE CHANGES LEFT SHOULDER. IF ADDITIONAL EVALUATION SOFT TISSUES. BE OF BENEFIT , CONSIDER MRI OF LEFT SHOULDER.
== END | disposition home or self-care (01) ==
LOC: RADCTMAIN 07:07
PROVIDERS: ATTEND Psychiatry & Neurology Neurology
DX: M47.812 Spondylosis without myelopathy or radiculopathy, cervical region (principal); M47.816 Spondylosis without myelopathy or radiculopathy, lumbar region; M75.22 Bicipital tendinitis, left shoulder
CPT/HCPCS: 72125